=== PATIENT | female | born 1940 | race Caucasian/White ===

== ENCOUNTER 2018-05-07 21:56 | Inpatient (IN) | payer MEDICARE, OTHER ==
[2018-05-07] MEDS ORDERED: NORMAL SALINE 1,000 ML IV ONE (22:34)
[2018-05-07] MEDS ORDERED: HYDROmorphone HCL 1 MG/ML DISP.SYRIN IV ONE (22:35)
[2018-05-07] MEDS ORDERED: ONDANSETRON HCL/PF 2 MG/ML VIAL IV ONE (22:35)
[2018-05-07] MEDS ORDERED: PANTOPRAZOLE SODIUM 40 MG in NORMAL SALINE 100 ML IV ONE (22:35)
[2018-05-07] MEDS ORDERED: ONDANSETRON HCL/PF 2 MG/ML VIAL ONE (22:39)
[2018-05-07] MEDS ORDERED: HYDROmorphone HCL 2 MG/ML VIAL ONE (22:40)
[2018-05-07] MEDS ORDERED: PANTOPRAZOLE SODIUM 40 MG/100 ML PIGGYBACK IV ONE (22:40)
[2018-05-07 22:53] LABS: Hemoglobin 9.7 gm/dL (12.5-16.0); Mean Cell Volume 98.2 fl (78-100); Mean Corpuscular Hgb Conc 34.6 g/dl (32-36); Mean Platelet Volume 9.6 fl (8-12.5); Neutrophil # 5.6 K/mm3 (1.3-6.0); Platelet Count 196 K/mm3 (150-450); Red Blood Count 2.85 M/mm3 (4.2-5.4); Red Cell Distribution Width 11.3 % (11.5-14.0); White Blood Count 7.4 K/mm3 (4.0-10.5)
[2018-05-07 23:17] LABS: Albumin * 3.6 gm/dl (3.4-5.0); BUN/Creatinine Ratio 13.4 (9.0-21.6); Bilirubin, Total 0.8 mg/dL (0.0-1.1); Ca. Corrected For Albumin 8.8 mg/dL (8.4-10.2); Calcium * 8.8 mg/dL (7.9-10.9); Carbon Dioxide 32.8 mmol/L (24-32.6); Potassium 3.8 mmol/L (3.4-4.6); Total Protein 6.8 gm/dL (6.2-8.2); Troponin I 0.022 ng/mL (0.00-0.10)
[2018-05-07] MEDS ORDERED: MAG HYDROX/ALUMINUM HYD/SIMETH 30 ML UDC PO ONE (23:38)
[2018-05-07] MEDS ORDERED: SUCRALFATE 1 G/10 ML UDC PO ONE (23:38)
[2018-05-07] MEDS ORDERED: LIDOCAINE HCL 20 ML UDC PO ONE (23:38)
[2018-05-07 23:49] LABS: Urine Bilirubin Negative (NEGATIVE); Urine Ketone Negative (NEGATIVE); Urine Nitrite Negative (NEGATIVE); Urine Protein 15 mg/dL (NEGATIVE); Urine Specific Gravity <=1.005 SP.GR. (1.005-1.010); Urine Urobilinogen Normal (NORMAL)
[2018-05-07 23:57] LABS: Urine Appearance Slightly Cloudy (CLEAR); Urine Blood 5 /ul (NEGATIVE); Urine Color Yellow
[2018-05-07 23:58] LABS: Urine Bacteria 4+; Urine RBC None Seen /hpf (0-5); Urine WBC 0-5 /hpf (0-5)
[2018-05-08] MEDS ORDERED: ALBUTEROL SULFATE 2.5 MG/0.5 ML VIAL.NEB IH ONE ×2 (00:36→00:40)
[2018-05-08] MEDS ORDERED: HYDROmorphone HCL 1 MG/ML DISP.SYRIN IV ONE (02:28)
[2018-05-08] MEDS ORDERED: HYDROmorphone HCL 1 MG/ML DISP.SYRIN ONE (02:31)
--- NOTE | 2018-05-08 02:38 | ERNOTE ---
Abdominal HPI - Narrative Date of Service: 05/08/18 - General Chief Complaint: Abdominal Pain Time Seen by Provider: 05/07/18 22:29 Source: patient, family Exam Limitations: no limitations - Immun/Allergies/Home Medications Immunizatons: IMMUNIZATION HX Immunizations Up to Date Yes History of Influenza Vaccine No Hx Pneumococcal Vaccination Yes Allergies/Adverse Reactions: Allergies atorvastatin calcium [From Lipitor] Allergy (Verified 03/18/18 15:30) doxycycline Allergy (Verified 03/18/18 15:30) sulfamethoxazole [Sulfamethoxazole] Allergy (Verified 03/18/18 15:30) Home Medications: HOME MEDICATIONS Aspirin 81 mg PO DAILY 03/07/16 [Last Taken Unknown] Budesonide [Pulmicort Respules] 2 ml IH BID 03/07/16 [Last Taken Unknown] Escitalopram Oxalate [Lexapro] 10 mg PO DAILY 03/07/16 [Last Taken Unknown] Isosorbide Mononitrate [Isosorbide Mononitrate ER] 120 mg PO DAILY 03/07/16 [Last Taken Unknown] Levalbuterol HCl [Xopenex] 0.63 mg IH Q4H PRN 03/07/16 [Last Taken Unknown] Polyethylene Glycol 3350 [Miralax] 17 gm PO DAILY 03/07/16 [Last Taken Unknown] Tiotropium [place] [Spiriva] 1 cap IH DAILY 03/07/16 [Last Taken Unknown] lamoTRIgine [Lamotrigine Odt] 100 mg PO DAILY 03/07/16 [Last Taken Unknown] traMADol HCL [Ultram] 50 mg PO BID PRN #20 tab 10/19/17 [Last Taken Unknown] metformin 500 mg tablet 250 mg PO BID tab 03/18/18 [Last Taken Unknown] oxycodone-acetaminophen 5 mg-325 mg tablet 1 tab PO BID PRN tab 03/18/18 [Last Taken Unknown] potassium chloride ER 20 mEq tablet,extended release(part/cryst) 20 meq PO DAILY 03/18/18 [Last Taken Unknown] ipratropium-albuterol 0.5 mg-3 mg(2.5 mg base)/3 mL nebulization soln 3 ml IH Q6H PRN #90 ml 03/26/18 [Last Taken Unknown] gabapentin 600 mg tablet 600 mg PO HS #30 tab 03/30/18 [Last Taken Unknown] atorvastatin 40 mg tablet 40 mg PO HS #30 tab 04/20/18 [Last Taken Unknown] Azithromycin [Zithromax] 500 mg PO DAILY #5 tab 04/28/18 [Last Taken Unknown] predniSONE [Prednisone] 1 tab PO TID #15 tab 04/28/18 [Last Taken Unknown] - History of Present Illness Narrative: patient presents with epigastric pain started earlier in days, known hx of copd andcad, nausea also present Timing: constant Quality: sharpness, stabbing Activities at Onset: none Modifying Factors - (Improves): Present: other - nothing Modifying Factors - (Worsens): Present: eating Associated Symptoms: Present: loss of appetite, shortness of breath Prior Abdominal Problems: Present: similar symptoms Review of Systems - Narrative Narrative: unremarkable - Review of Systems Constitutional: Present: See HPI, weakness, fatigue, malaise EYE: Present: no symptoms reported ENT: Present: no symptoms reported Respiratory: Present: See HPI, shortness of breath, orthopnea, wheezing Gastrointestinal/Abdominal: Present: See HPI, nausea, abdominal pain, other - pain in epigastrium, Genitourinary: Present: no symptoms reported Musculoskeletal: Present: no symptoms reported Skin: Present: no symptoms reported Neurological: Present: no symptoms reported Endocrine: Present: no symptoms reported Hematologic/Lymphatic: Present: no symptoms reported Psych: Present: no symptoms reported All Other Systems: All systems neg except as marked Medical History (Last Reviewed 05/07/18 @ 22:08 by Sherry Garcia RN) SLE (systemic lupus erythematosus related syndrome) (Chronic) Onset Date: ~1987 Osteoporosis (Chronic) Onset Date: ~2004 Hypertension (Chronic) Onset Date: ~1984 Hyperlipidemia (Chronic) Onset Date: ~2001 GERD (gastroesophageal reflux disease) (Chronic) Onset Date: ~1991 Diabetes mellitus (Chronic) Onset Date: ~1980 CVA (cerebral vascular accident) (Acute) Onset Date: Unknown COPD (chronic obstructive pulmonary disease) (Chronic) Onset Date: ~2000 Chronic kidney disease (Chronic) Onset Date: ~09/23/06 CAD (coronary artery disease) (Chronic) Onset Date: ~12/11/15 Anxiety with depression (Chronic) Onset Date: ~01/09/15 Anemia in chronic illness (Chronic) Onset Date: ~2000 Adrenal insufficiency (Chronic) Onset Date: ~1996 Surgical History: Surgical History (Last Updated 05/07/18 @ 22:09 by Sherry Garcia RN) Hx of appendectomy Hx of heart artery stent Family History: Family History (Last Updated 05/07/18 @ 22:09 by Sherry Garcia RN) Other No pertinent family history Social History: Preferred Language Urdu Do you have any pentecostal or No cultural preference? Smoking Status Former smoker Abuse History No History of abuse Psych History Hx of Anxiety,Hx of Depression Alcohol Use none Drug Use none Physical Exam - Physical Exam General Appearance: Present: moderate distress, anxious Head Exam: Present: normal inspection, no evidence of injury Eye Exam: Normal inspection: bilateral, PERRL: bilateral, EOMI: bilateral Ears, Nose, Throat: Present: normal ENT inspection, normal pharynx Neck: Present: normal inspection, nontender Respiratory: Present: respiratory distress, decreased breath sounds Cardiovascular/Chest: Present: regular rate, rhythm, extra beats Peripheral Pulses: N=norm/S=strong/W=weak/B=bound/A=absent: Carotid (R): Normal, Carotid (L): Normal, Radial (R): Normal, Radial (L): Normal, Femoral (R): Normal Gastrointestinal/Abdominal: Present: tenderness, other - tenderness in epigastrium, reproducible with palpation Back Exam: Present: normal inspection, normal range of motion, no CVA tenderness, no vertebral tenderness Extremity Exam: Present: normal inspection, non-tender, normal range of motion, no edema Neurological Exam: Present: alert, oriented, normal mood/affect, no m otor/sensory deficits Skin Exam: Present: normal color, warm/dry Lymphatic Exam: Present: no adenopathy ED Progress - Date and Time Seen: Date and Time: 05/08/18 02:35 patient improved, case discussed with dr ramirez, to admit to observation - Results and Orders Patient's Lab Results:: I have reviewed the patient's lab results. - Vital Signs Patient's Vital Signs:: I have reviewed the patient's vital signs. Vital Signs: Vital Signs 05/07/18 22:05 05/07/18 23:07 05/07/18 23:30 Temperature 36.4 C Pulse Rate 101 H 96 95 Respiratory Rate 18 18 18 Blood Pressure 180/113 H 194/101 H 164/78 H O2 Sat by Pulse Oximetry 95 91 L 91 L 05/08/18 00:00 05/08/18 00:30 05/08/18 00:42 Temperature Pulse Rate 89 92 87 Respiratory Rate 16 20 Blood Pressure 168/68 H 156/83 H O2 Sat by Pulse Oximetry 91 L 88 L 88 L 05/08/18 01:00 05/08/18 01:09 05/08/18 01:30 Temperature Pulse Rate 89 83 Respiratory Rate 16 18 Blood Pressure 164/82 H 170/91 H O2 Sat by Pulse Oximetry 84 L 95 97 - EKG EKG: NSR, premature ventricular contraction EKG read: Interp. by me - X-Ray X-Ray #1 X-Ray: abdomen - copd with patchy infitrates , nsbgp Interpretation: Interp. by me - Progress/Reassessment Chief Complaint: Abdominal Pain Progress:: Improved - Transfer of Care Expected Disposition: Admit Plan - Plan Plan: to admit to observation Departure Clinical Impression: COPD exacerbation, Gastritis and duodenitis, Urinary tract infection - Departure Disposition: Still a patient Condition: Fair
[2018-05-08] MEDS ORDERED: METHYLPREDNISOLONE SOD SUCC/PF 125 MG/2 ML VIAL IV ONE (02:41)
[2018-05-08] MEDS ORDERED: METHYLPREDNISOLONE SOD SUCC/PF 125 MG/2 ML VIAL ONE (02:43)
[2018-05-08] MEDS ORDERED: ALBUTEROL SULFATE 2.5 MG/0.5 ML VIAL.NEB IH PRN (02:44)
[2018-05-08] MEDS: NORMAL SALINE 1,000 ML IV PRN ×2 (11:08→18:26)
[2018-05-08] MEDS: ALBUTEROL SULFATE/IPRATROPIUM 3 ML NEBU IH SCH ×3 (11:40→18:09)
[2018-05-08] MEDS: AZITHROMYCIN 250 MG TABLET PO SCH (12:07)
[2018-05-08] MEDS: predniSONE 20 MG TABLET PO SCH (12:07)
[2018-05-08] MEDS ORDERED: MAGNESIUM CITRATE 300 ML BTL PO ONE (12:30)
[2018-05-08] MEDS: oxyCODONE HCL/ACETAMINOPHEN 1 TAB TABLET PO PRN (17:48)
[2018-05-09] MEDS: ALBUTEROL SULFATE/IPRATROPIUM 3 ML NEBU IH SCH ×4 (00:20→20:12)
[2018-05-09] MEDS: oxyCODONE HCL/ACETAMINOPHEN 1 TAB TABLET PO PRN ×2 (01:40→07:40)
[2018-05-09] MEDS: NORMAL SALINE 1,000 ML IV PRN ×3 (02:01→17:05)
[2018-05-09] MEDS ORDERED: ONDANSETRON HCL/PF 2 MG/ML VIAL IV PRN (09:02)
[2018-05-09] MEDS ORDERED: KETOROLAC TROMETHAMINE 30 MG/ML VIAL IV ONE (09:04)
[2018-05-09] MEDS: AZITHROMYCIN 250 MG TABLET PO SCH (09:21)
[2018-05-09] MEDS: predniSONE 20 MG TABLET PO SCH (09:21)
[2018-05-09] MEDS ORDERED: LEVOFLOXACIN 500 MG TABLET PO ONE (12:36)
[2018-05-09] MEDS: traMADol HCL 50 MG TABLET PO PRN ×2 (12:52→21:47)
[2018-05-09 16:19] LABS: Hematocrit 30.2 % (37.0-47.0); Hemoglobin 10.1 gm/dL (12.5-16.0); Mean Cell Volume 101.3 fl (78-100); Mean Corpuscular Hemoglobin 33.9 pg (27-31); Mean Corpuscular Hgb Conc 33.4 g/dl (32-36); Mean Platelet Volume 9.2 fl (8-12.5); Neutrophil # 9.7 K/mm3 (1.3-6.0); Neutrophil % 94.5 % (42-75.0); Platelet Count 179 K/mm3 (150-450); Red Blood Count 2.98 M/mm3 (4.2-5.4); Red Cell Distribution Width 11.9 % (11.5-14.0); White Blood Count 10.3 K/mm3 (4.0-10.5)
[2018-05-09 16:32] LABS: Albumin * 3.6 gm/dl (3.4-5.0); Anion Gap 9.8 mmol/L (6.8-13.8); BUN/Creatinine Ratio 14.3 (9.0-21.6); Ca. Corrected For Albumin 8.2 mg/dL (8.4-10.2); Calcium * 8.2 mg/dL (7.9-10.9); Carbon Dioxide 28.6 mmol/L (24-32.6); Potassium 4.4 mmol/L (3.4-4.6); Total Protein 6.8 gm/dL (6.2-8.2)
[2018-05-09] MEDS ORDERED: FUROSEMIDE 10 MG/ML VIAL IV ONE (23:01)
--- NOTE | 2018-05-09 23:23 | HP ---
Chief Complaint - Chief Complaint Date of Service: 05/08/18 Time of Service: 11:00 Chief Complaint: Shortness of breath, abdominal pain History of Present Illness: Lenore is a 77 yo female with COPD history who presented to the [facility] ER with oxygen saturation of 70% and was placed on oxygen at 4lpm to keep sats >90%. Shortness of breath and productive cough have been worsening over the past week. She does not use oxygen at home. She also reported abdominal pain. Abdominal xray in the ER showed stool retention. Labwork in the ER was significant for sodium of 121. She reports weakness. Medical History (Last Updated 05/08/18 @ 03:41 by Yana Garcia RN) SLE (systemic lupus erythematosus related syndrome) (Chronic) Onset Date: ~1987 Osteoporosis (Chronic) Onset Date: ~2004 Hypertension (Chronic) Onset Date: ~1984 Hyperlipidemia (Chronic) Onset Date: ~2001 GERD (gastroesophageal reflux disease) (Chronic) Onset Date: ~1991 Diabetes mellitus (Chronic) Onset Date: ~1980 CVA (cerebral vascular accident) (Acute) Onset Date: Unknown COPD (chronic obstructive pulmonary disease) (Chronic) Onset Date: ~2000 Chronic kidney disease (Chronic) Onset Date: ~09/23/06 CAD (coronary artery disease) (Chronic) Onset Date: ~12/11/15 Anxiety with depression (Chronic) Onset Date: ~01/09/15 Anemia in chronic illness (Chronic) Onset Date: ~2000 Adrenal insufficiency (Chronic) Onset Date: ~1996 Asthma Surgical History: Surgical History (Last Updated 05/07/18 @ 22:09 by Sherry Garcia RN) Hx of appendectomy Hx of heart artery stent Family History: Family History (Last Updated 05/10/18 @ 07:20 by Vijaya Hong RN) Father Myocardial infarction Alcohol abuse Mother Aneurysm Alcohol abuse Brother Cancer Other Parents Social History: Patient Lives/Resources With Spouse Utilized Preferred Language Divehi Do you have any yazidism or No cultural preference? Smoking Status Former smoker Have you smoked in the past 12 No months Abuse History No History of abuse Psych History Hx of Anxiety,Hx of Depression Alcohol Use none Drug Use none Review Of Systems (GEN) - Review of Systems Generalized/Overall Review: Present: Weakness, Fatigue. Absent: Chills, Fever EENTM: Present: No Symptoms Reported Respiratory: Present: Cough, Shortness of Breath Cardiac: Present: Edema. Absent: Chest Pain, Palpitations Abdominal: Present: Nausea, Abdominal Pain, Constipation. Absent: Vomiting, Diarrhea Genitourinary: Present: No Symptoms Reported Musculoskeletal: Present: No Symptoms Reported Neurological: Present: No Symptoms Reported Skin: Present: No Symptoms Reported Immunizations: IMMUNIZATION HX Immunizations Up to Date Yes History of Influenza Vaccine No Hx Pneumococcal Vaccination Yes Allergies/Adverse Reactions: Allergies Allergy/AdvReac Type Severity Reaction Status Date / Time doxycycline Allergy Verified 03/18/18 15:30 sulfamethoxazole Allergy Verified 03/18/18 15:30 [Sulfamethoxazole] Home Medications: HOME MEDICATIONS Escitalopram Oxalate [Lexapro] 10 mg PO DAILY 03/07/16 [Last Taken Unknown] Polyethylene Glycol 3350 [Miralax] 17 gm PO DAILY PRN 03/07/16 [Last Taken Unknown] lamoTRIgine [Lamotrigine Odt] 100 mg PO DAILY 03/07/16 [Last Taken Unknown] traMADol HCL [Ultram] 50 mg PO BID PRN #20 tab 10/19/17 [Last Taken Unknown] metformin 500 mg tablet 250 mg PO BID tab 03/18/18 [Last Taken Unknown] oxycodone-acetaminophen 5 mg-325 mg tablet 1 tab PO BID PRN tab 03/18/18 [Last Taken Unknown] potassium chloride ER 20 mEq tablet,extended release(part/cryst) 20 meq PO DAILY 03/18/18 [Last Taken Unknown] ipratropium-albuterol 0.5 mg-3 mg(2.5 mg base)/3 mL nebulization soln 3 ml IH Q6H PRN #90 ml 03/26/18 [Last Taken Unknown] gabapentin 600 mg tablet 600 mg PO HS #30 tab 03/30/18 [Last Taken Unknown] atorvastatin 40 mg tablet 40 mg PO HS #30 tab 04/20/18 [Last Taken Unknown] Cyclobenzaprine HCl 10 mg PO BID PRN 05/08/18 [Last Taken Unknown] Furosemide 20 mg PO DAILY 05/08/18 [Last Taken Unknown] HYDROcodone/ACETAMINOPHEN [Hydrocodon-Acetaminoph 7.5-325] 1 each PO Q8H PRN 05/08/18 [Last Taken Unknown] Lisinopril [Zestril] 10 mg PO DAILY 05/08/18 [Last Taken Unknown] predniSONE [Prednisone] 5 mg PO DAILY 05/08/18 [Last Taken Unknown] Exam - Exam Vital Signs: Vital Signs - Last Taken Temp 36.5 C 05/09/18 22:33 Pulse 111 H 05/09/18 23:09 Resp 32 H 05/09/18 22:44 BP 202/112 H 05/09/18 23:09 Pulse Ox 94 05/09/18 22:44 Constitutional: Present: Alert, Oriented x3 ENT Exam: Present: hearing grossly normal Eye Exam: bilateral eye: normal inspection Respiratory: Present: lungs clear, expiration (prolonged) Cardiovascular/Chest: Present: regular rate, rhythm, no murmur Abdomen: Present: Normal bowel sounds, soft, tender - diffuse Skin Exam: Present: normal color, warm/dry, no cyanosis Neurologic: Present: no motor/sensory deficits, alert, normal mood/affect, oriented x 3 Diagnostic Studies: Abnormal Lab Results 05/09/18 05/09/18 Range/Units 16:15 16:15 RBC 2.98 L (4.2-5.4) M/mm3 Hgb 10.1 L (12.5-16.0) gm/dL Hct 30.2 L (37.0-47.0) % MCV 101.3 H (78-100) fl MCH 33.9 H (27-31) pg Immature Gran # (Auto) 0.04 H (0.000-0.0310) K/mm3 Neutrophils % 94.5 H (42-75.0) % Lymphocytes % 3.3 L (20-51) % Neutrophils # 9.7 H (1.3-6.0) K/mm3 Lymphocytes # 0.34 L (1.5-3.5) k/mm3 Sodium 128 L (132-142) mmol/L Plasma Sodium 129 L (130-142) mmol/L Chloride 94 L (97-106) mmol/L Est GFR (Non-Af Amer) 59 L (60-130) mL/min Random Glucose 174 H (70-110) mg/dL Calcium Adj for Albumin 8.2 L (8.4-10.2) mg/dL Microbiology 05/07/18 00:00 Urine Culture - Final Urine,Voided Escherichia Coli 05/08/18 11:20 Sputum Culture - Preliminary Expectorate Sputum No Pathogens Isolated Laboratory Results WBC 10.3 K/mm3 (4.0-10.5) D 05/09/18 16:15 RBC 2.98 M/mm3 (4.2-5.4) L 05/09/18 16:15 Hgb 10.1 gm/dL (12.5-16.0) L 05/09/18 16:15 Hct 30.2 % (37.0-47.0) L 05/09/18 16:15 MCV 101.3 fl (78-100) H 05/09/18 16:15 MCH 33.9 pg (27-31) H 05/09/18 16:15 MCHC 33.4 g/dl (32-36) 05/09/18 16:15 RDW 11.9 % (11.5-14.0) 05/09/18 16:15 Plt Count 179 K/mm3 (150-450) 05/09/18 16:15 MPV 9.2 fl (8-12.5) 05/09/18 16:15 Immature Gran % (Auto) 0.40 % (0.001-0.429) 05/09/18 16:15 Immature Gran # (Auto) 0.04 K/mm3 (0.000-0.0310) H 05/09/18 16:15 Neutrophils % 94.5 % (42-75.0) H 05/09/18 16:15 Lymphocytes % 3.3 % (20-51) L 05/09/18 16:15 Monocytes % 1.8 % (0.0-9) 05/09/18 16:15 Eosinophils % 0.0 % (0.0-3.0) 05/09/18 16:15 Basophils % 0.0 % (0.0-1.0) 05/09/18 16:15 Nucleated RBC % 0.0 k/mm3 (0-1) 05/09/18 16:15 Neutrophils # 9.7 K/mm3 (1.3-6.0) H 05/09/18 16:15 Lymphocytes # 0.34 k/mm3 (1.5-3.5) L 05/09/18 16:15 Monocytes # 0.2 k/mm3 (0.0-1.0) 05/09/18 16:15 Eosinophils # 0.0 k/mm3 (0.0-0.7) 05/09/18 16:15 Absolute Basophils 0.0 k/mm3 (0.0-0.1) 05/09/18 16:15 pCO2 53.0 mmHg (32.0-45.0) H 05/08/18 02:50 pO2 74.5 mmHg (83.0-108.0) L 05/08/18 02:50 HCO3 29.3 mmol/L (21.0-28.0) H 05/08/18 02:50 Total CO2 30.9 mmol/L (19.0-24.0) H 05/08/18 02:50 Base Excess 3.1 mmol/L (-2.0-3.0) H 05/08/18 02:50 ABG pH 7.36 (7.35-7.45) 05/08/18 02:50 ABG O2 Sat (Measured) 94.2 % (94.0-98.0) 05/08/18 02:50 Sodium 128 mmol/L (132-142) L 05/09/18 16:15 Plasma Sodium 129 mmol/L (130-142) L 05/09/18 16:15 Potassium 4.4 mmol/L (3.4-4.6) 05/09/18 16:15 Chloride 94 mmol/L (97-106) L 05/09/18 16:15 Carbon Dioxide 28.6 mmol/L (24-32.6) 05/09/18 16:15 Anion Gap 9.8 mmol/L (6.8-13.8) 05/09/18 16:15 BUN 14 mg/dL (3-23) 05/09/18 16:15 Creatinine 0.98 mg/dL (0.4-1.4) 05/09/18 16:15 Est GFR (Non-Af Amer) 59 mL/min (60-130) L 05/09/18 16:15 BUN/Creatinine Ratio 14.3 (9.0-21.6) 05/09/18 16:15 Random Glucose 174 mg/dL (70-110) H 05/09/18 16:15 Calcium 8.2 mg/dL (7.9-10.9) 05/09/18 16:15 Calcium Adj for Albumin 8.2 mg/dL (8.4-10.2) L 05/09/18 16:15 Total Bilirubin 1.0 mg/dL (0.0-1.1) 05/09/18 16:15 AST 27 U/L (0-48) 05/09/18 16:15 ALT 38 U/L (19-67) 05/09/18 16:15 Alkaline Phosphatase 56 U/L (50-170) 05/09/18 16:15 Troponin I 0.026 ng/mL (0.00-0.10) 05/08/18 07:07 Total Protein 6.8 gm/dL (6.2-8.2) 05/09/18 16:15 Albumin 3.6 gm/dl (3.4-5.0) 05/09/18 16:15 Amylase 63 U/L (25-115) 05/07/18 22:45 Lipase 209 U/L (73-393) 05/07/18 22:45 Urine Color Yellow 05/07/18 23:36 Urine Appearance Slightly cloudy (CLEAR) 05/07/18 23:36 Urine pH 6.0 pH (5.0-7.0) 05/07/18 23:36 Ur Specific [place] <=1.005 SP.GR. (1.005-1.010) 05/07/18 23:36 Urine Protein 15 mg/dL (NEGATIVE) H 05/07/18 23:36 Urine Glucose (UA) Negative mg/dL (NEGATIVE) 05/07/18 23:36 Urine Ketones Negative mg/dL (NEGATIVE) 05/07/18 23:36 Urine Blood 5 /ul (NEGATIVE) H 05/07/18 23:36 Urine Nitrate Negative (NEGATIVE) 05/07/18 23:36 Urine Bilirubin Negative mg/dl (NEGATIVE) 05/07/18 23:36 Prot Sulfosalicylic Acd Negative mg/dL (0) 05/07/18 23:36 Urine Urobilinogen Normal EU/dl (NORMAL) 05/07/18 23:36 Ur Leukocyte Esterase 75 /ul (NEGATIVE) H 05/07/18 23:36 Urine RBC None seen /hpf (0-5) 05/07/18 23:36 Urine WBC 0-5 /hpf (0-5) 05/07/18 23:36 Ur Epithelial Cells Trace /hpf (0-5) 05/07/18 23:36 Urine Bacteria 4+ (NONE) H 05/07/18 23:36 Urine Culture Comments Culture to follow 05/07/18 23:36 Assessment/Plan - Narrative Narrative: Lenore is a 77 yo female with: 1) Acute Respiratory failure with hypoxia, secondary to COPD exacerbation. Already this morning she has been weaned off oxygen and is on room air with oxygen saturation >90%. She will be treated with Azithromycin 500mg daily x 3 days, ER started her on IV solumedrol will continue steroids eventually changing to oral prednisone. Will give nebulizers. Chest xray reviewed and showed no evidence of pneumonia or fluid. As she has already weaned to room air will admit to observation. 2) Hyponatremia: Sodium of 121, suspect mild dehydration due to not eating well from COPD exacerbation. Will give NS and monitor sodium, if taking >2midnights will change to inpatient. 3) Stool retention: Will give mag citrate. - Assessment/Plan (1) Acute respiratory failure with hypoxia Problem: Acute (2) Hyponatremia Problem: Acute (3) Fecal retention Problem: Acute (4) COPD exacerbation Problem: Acute
--- NOTE | 2018-05-09 23:24 | PN ---
Subjective - Date and Time Seen Date: 05/09/18 Time: 12:00 Subjective Narrative: Continues to report abdominal pain. Reports she would like an enema. Sodium still low. Continue IV fluids. Shortness of breath is improved. Has remained off oxygen since being weaned off. Objective - Vitals Vitals: Last Vital Signs Temp 36.5 C 05/09/18 22:33 Pulse 111 H 05/09/18 23:09 Resp 32 H 05/09/18 22:44 BP 202/112 H 05/09/18 23:09 Pulse Ox 94 05/09/18 22:44 - Abnormal Lab Findings Abnormal Lab Findings: Abnormal Lab Results 05/09/18 05/09/18 Range/Units 16:15 16:15 RBC 2.98 L (4.2-5.4) M/mm3 Hgb 10.1 L (12.5-16.0) gm/dL Hct 30.2 L (37.0-47.0) % MCV 101.3 H (78-100) fl MCH 33.9 H (27-31) pg Immature Gran # (Auto) 0.04 H (0.000-0.0310) K/mm3 Neutrophils % 94.5 H (42-75.0) % Lymphocytes % 3.3 L (20-51) % Neutrophils # 9.7 H (1.3-6.0) K/mm3 Lymphocytes # 0.34 L (1.5-3.5) k/mm3 Sodium 128 L (132-142) mmol/L Plasma Sodium 129 L (130-142) mmol/L Chloride 94 L (97-106) mmol/L Est GFR (Non-Af Amer) 59 L (60-130) mL/min Random Glucose 174 H (70-110) mg/dL Calcium Adj for Albumin 8.2 L (8.4-10.2) mg/dL - Exam Constitutional: Present: Alert, Oriented x3, Cooperative ENT Exam: Present: hearing grossly normal Respiratory: Present: lungs clear Cardiovascular/Chest: Present: regular rate, rhythm, no murmur Abdomen: Present: Normal bowel sounds, soft, tender - diffuse tenderness Skin Exam: Present: normal color, warm/dry, no cyanosis Assessment/Plan Plan Narrative: Patient request enema for stool retention. Will continue NS for hyponatremia. Weaned off oxygen, will continue Azithromycin and steroids for COPD exacerbation. Will make inpatient due to continued low sodium, continued abdominal pain, and continued weakness. - Problems/Diagnosis (1) Acute respiratory failure with hypoxia Problem: Resolved (2) COPD exacerbation Problem: Acute (3) Fecal retention Problem: Acute (4) Hyponatremia Problem: Acute
[2018-05-09] MEDS ORDERED: ALPRAZolam 0.5 MG TABLET PO PRN (23:35)
[2018-05-09] MEDS ORDERED: ALBUTEROL SULFATE/IPRATROPIUM 3 ML NEBU IH PRN (23:53)
[2018-05-10] MEDS ORDERED: POLYETHYLENE GLYCOL 3350 119 GM BTL PO PRN (00:15)
[2018-05-10] MEDS: ALBUTEROL SULFATE/IPRATROPIUM 3 ML NEBU IH SCH ×5 (00:17→18:00)
[2018-05-10] MEDS ORDERED: LISINOPRIL 10 MG TABLET ONE (00:42)
[2018-05-10] MEDS: LISINOPRIL 10 MG TABLET PO SCH ×2 (00:44→09:12)
[2018-05-10] MEDS: ESCITALOPRAM OXALATE 10 MG TAB PO SCH (09:12)
[2018-05-10] MEDS: POTASSIUM CHLORIDE 20 MEQ TABLET.SA PO SCH (09:12)
[2018-05-10] MEDS: FUROSEMIDE 20 MG TABLET PO SCH (09:12)
[2018-05-10] MEDS: predniSONE 20 MG TABLET PO SCH (09:12)
[2018-05-10] MEDS: lamoTRIgine 100 MG TABLET PO SCH (09:12)
[2018-05-10] MEDS: AZITHROMYCIN 250 MG TABLET PO SCH (09:13)
[2018-05-10] MEDS: NYSTATIN 15 APPL BTL TP SCH ×2 (10:40→20:42)
[2018-05-10] MEDS ORDERED: FUROSEMIDE 10 MG/ML VIAL IV ONE (11:36)
[2018-05-10 12:20] LABS: Hematocrit 29.2 % (37.0-47.0); Mean Corpuscular Hemoglobin 34.2 pg (27-31); Mean Corpuscular Hgb Conc 34.2 g/dl (32-36); Mean Platelet Volume 9.3 fl (8-12.5); Neutrophil % 91.6 % (42-75.0); Platelet Count 170 K/mm3 (150-450); Red Blood Count 2.92 M/mm3 (4.2-5.4); Red Cell Distribution Width 11.9 % (11.5-14.0); White Blood Count 9.9 K/mm3 (4.0-10.5)
[2018-05-10 12:32] LABS: Albumin * 3.5 gm/dl (3.4-5.0); Anion Gap 8.5 mmol/L (6.8-13.8); BUN/Creatinine Ratio 13.7 (9.0-21.6); Bilirubin, Total 1.3 mg/dL (0.0-1.1); Ca. Corrected For Albumin 8.4 mg/dL (8.4-10.2); Calcium * 8.3 mg/dL (7.9-10.9); Carbon Dioxide 29.8 mmol/L (24-32.6); Potassium 3.3 mmol/L (3.4-4.6); Total Protein 6.7 gm/dL (6.2-8.2)
[2018-05-10] MEDS: INSULIN LISPRO 100 UNITS/ML VIAL SC SCH (17:39)
[2018-05-10] MEDS: traMADol HCL 50 MG TABLET PO PRN (19:01)
[2018-05-10] MEDS: GABAPENTIN 600 MG TABLET PO SCH (20:43)
[2018-05-10] MEDS: ROSUVASTATIN CALCIUM 20 MG TABLET PO SCH (20:44)
--- NOTE | 2018-05-10 23:06 | PN ---
Subjective - Date and Time Seen Date: 05/10/18 Time: 11:00 Subjective Narrative: Increased shortness of breath and lower extremity edema. She is now having bowel movements and abdomen feels better. No fever or chills. Sodium improved but still low. Objective - Vitals Vitals: Last Vital Signs Temp 36.9 C 05/10/18 18:45 Pulse 100 05/10/18 18:45 Resp 18 05/10/18 18:45 BP 185/97 H 05/10/18 18:45 Pulse Ox 100 05/10/18 18:45 - Abnormal Lab Findings Abnormal Lab Findings: Abnormal Lab Results 05/10/18 05/10/18 Range/Units 12:15 12:15 RBC 2.92 L (4.2-5.4) M/mm3 Hgb 10.0 L (12.5-16.0) gm/dL Hct 29.2 L (37.0-47.0) % MCH 34.2 H (27-31) pg Immature Gran # (Auto) 0.04 H (0.000-0.0310) K/mm3 Neutrophils % 91.6 H (42-75.0) % Lymphocytes % 4.0 L (20-51) % Neutrophils # 9.0 H (1.3-6.0) K/mm3 Lymphocytes # 0.40 L (1.5-3.5) k/mm3 Sodium 126 L (132-142) mmol/L Plasma Sodium 127 L (130-142) mmol/L Potassium 3.3 L D (3.4-4.6) mmol/L Chloride 91 L (97-106) mmol/L Random Glucose 181 H (70-110) mg/dL Total Bilirubin 1.3 H (0.0-1.1) mg/dL - Exam Constitutional: Present: Alert, Oriented x3 Respiratory: Present: crackles Cardiovascular/Chest: Present: regular rate, rhythm, no murmur Abdomen: Present: Normal bowel sounds, soft, nontender Extremity: Present: lower extremity edema - 3+ Skin Exam: Present: normal color, warm/dry, no cyanosis Assessment/Plan Plan Narrative: Lenore has lower extremity edema and pulmonary vascular congestions due to the IV fluid for sodium replacement. Will stop fluids and give IV lasix. No respiratory failure at this time, still off oxygen. Will monitor sodium after lasix. Continue azithromycin and steroids. - Problems/Diagnosis (1) COPD exacerbation Problem: Acute (2) Hyponatremia Problem: Acute (3) Acute respiratory failure with hypoxia Problem: Resolved (4) Fecal retention Problem: Resolved (5) Lower extremity edema Problem: Acute (6) Pulmonary vascular congestion Problem: Acute
[2018-05-10 23:29] LABS: Anion Gap 5.7 mmol/L (6.8-13.8); BUN/Creatinine Ratio 13.8 (9.0-21.6); Calcium * 8.4 mg/dL (7.9-10.9); Carbon Dioxide 33.4 mmol/L (24-32.6); Estimated Creat Clear 30.4; Potassium 3.1 mmol/L (3.4-4.6)
[2018-05-11] MEDS: ALBUTEROL SULFATE/IPRATROPIUM 3 ML NEBU IH SCH ×4 (00:17→18:16)
[2018-05-11] MEDS ORDERED: POTASSIUM CHLORIDE 20 MEQ TABLET.SA PO ONE ×2 (00:40→10:38)
[2018-05-11] MEDS ORDERED: FUROSEMIDE 10 MG/ML VIAL IV ONE (05:00)
[2018-05-11] MEDS: INSULIN LISPRO 100 UNITS/ML VIAL SC SCH ×3 (06:44→16:40)
[2018-05-11] MEDS ORDERED: INSULIN LISPRO 100 UNITS/ML VIAL SC SCH (07:00)
[2018-05-11] MEDS: FUROSEMIDE 20 MG TABLET PO SCH (08:23)
[2018-05-11] MEDS: LISINOPRIL 10 MG TABLET PO SCH (08:23)
[2018-05-11] MEDS: predniSONE 20 MG TABLET PO SCH (08:23)
[2018-05-11] MEDS: AZITHROMYCIN 250 MG TABLET PO SCH (08:23)
[2018-05-11] MEDS: NYSTATIN 15 APPL BTL TP SCH ×2 (08:24→21:42)
[2018-05-11] MEDS: POTASSIUM CHLORIDE 20 MEQ TABLET.SA PO SCH (08:24)
[2018-05-11] MEDS: ESCITALOPRAM OXALATE 10 MG TAB PO SCH (08:24)
[2018-05-11] MEDS: lamoTRIgine 100 MG TABLET PO SCH (08:24)
[2018-05-11 09:33] LABS: Albumin * 3.3 gm/dl (3.4-5.0); Anion Gap 4.9 mmol/L (6.8-13.8); BUN/Creatinine Ratio 10.4 (9.0-21.6); Bilirubin, Total 1.1 mg/dL (0.0-1.1); Ca. Corrected For Albumin 8.7 mg/dL (8.4-10.2); Calcium * 8.5 mg/dL (7.9-10.9); Potassium 2.9 mmol/L (3.4-4.6); Total Protein 6.3 gm/dL (6.2-8.2)
[2018-05-11] MEDS: POLYETHYLENE GLYCOL 3350 119 GM BTL PO PRN (10:30)
[2018-05-11 16:52] LABS: Albumin * 3.4 gm/dl (3.4-5.0); Anion Gap 5.3 mmol/L (6.8-13.8); BUN/Creatinine Ratio 13.3 (9.0-21.6); Bilirubin, Total 1.1 mg/dL (0.0-1.1); Ca. Corrected For Albumin 8.7 mg/dL (8.4-10.2); Calcium * 8.5 mg/dL (7.9-10.9); Potassium 4.3 mmol/L (3.4-4.6); Total Protein 6.5 gm/dL (6.2-8.2)
[2018-05-11] MEDS: ROSUVASTATIN CALCIUM 20 MG TABLET PO SCH (21:42)
[2018-05-11] MEDS: GABAPENTIN 600 MG TABLET PO SCH (21:42)
[2018-05-12] MEDS: ALBUTEROL SULFATE/IPRATROPIUM 3 ML NEBU IH SCH ×4 (00:20→19:10)
[2018-05-12] MEDS: INSULIN LISPRO 100 UNITS/ML VIAL SC SCH ×3 (07:24→17:29)
[2018-05-12] MEDS: lamoTRIgine 100 MG TABLET PO SCH (09:34)
[2018-05-12] MEDS: POTASSIUM CHLORIDE 20 MEQ TABLET.SA PO SCH (09:34)
[2018-05-12] MEDS: ESCITALOPRAM OXALATE 10 MG TAB PO SCH (09:34)
[2018-05-12] MEDS: LISINOPRIL 10 MG TABLET PO SCH (09:34)
[2018-05-12] MEDS: predniSONE 20 MG TABLET PO SCH (09:34)
[2018-05-12] MEDS: FUROSEMIDE 20 MG TABLET PO SCH (09:34)
[2018-05-12] MEDS: AZITHROMYCIN 250 MG TABLET PO SCH (09:34)
[2018-05-12] MEDS: NYSTATIN 15 APPL BTL TP SCH ×2 (09:35→20:20)
[2018-05-12 11:21] LABS: Albumin * 3.4 gm/dl (3.4-5.0); Anion Gap 7.2 mmol/L (6.8-13.8); BUN/Creatinine Ratio 14.2 (9.0-21.6); Ca. Corrected For Albumin 9.2 mg/dL (8.4-10.2); Carbon Dioxide 32.1 mmol/L (24-32.6); Potassium 4.3 mmol/L (3.4-4.6); Total Protein 6.5 gm/dL (6.2-8.2)
[2018-05-12] MEDS ORDERED: SUCRALFATE 1 G/10 ML UDC PO ONE (14:00)
[2018-05-12] MEDS ORDERED: MAG HYDROX/ALUMINUM HYD/SIMETH 30 ML UDC PO ONE (14:00)
[2018-05-12] MEDS ORDERED: LIDOCAINE HCL 20 ML UDC PO ONE (14:00)
[2018-05-12] MEDS: ROSUVASTATIN CALCIUM 20 MG TABLET PO SCH (20:20)
[2018-05-12] MEDS: GABAPENTIN 600 MG TABLET PO SCH (20:20)
--- NOTE | 2018-05-12 23:34 | PN ---
Subjective - Date and Time Seen Date: 05/11/18 Time: 08:00 Subjective Narrative: Breathing is better today, still having lower extremity edema. Sodium still low but stable despite having to give lasix yesterday. No abdominal pain. No fever or chills. Objective - Vitals Vitals: Last Vital Signs Selected Entries 05/11/18 07:50 Temperature 37.2 C Pulse Rate 97 Respiratory Rate 18 Blood Pressure 123/76 O2 Sat by Pulse Oximetry 98 Oxygen Delivery Method Room Air - Abnormal Lab Findings Abnormal Lab Findings: Abnormal Lab Results - Exam Constitutional: Present: Alert, Oriented x3, Cooperative ENT Exam: Present: hearing grossly normal Respiratory: Present: lungs clear Cardiovascular/Chest: Present: regular rate, rhythm, no murmur Abdomen: Present: Normal bowel sounds, soft, nontender, nondistended Extremity: Present: lower extremity edema - 2+ Skin Exam: Present: normal color, warm/dry, no cyanosis Assessment/Plan Plan Narrative: Improved today, still having lower extremity edema. Needing additional lasix, will monitor sodium which has remained stable and at her baseline. Continue steroids and azithromycin for COPD exacerbation. - Problems/Diagnosis (1) COPD exacerbation Problem: Acute (2) Hyponatremia Problem: Acute (3) Lower extremity edema Problem: Acute (4) Pulmonary vascular congestion Problem: Resolved (5) Acute respiratory failure with hypoxia Problem: Resolved (6) Fecal retention Problem: Resolved
--- NOTE | 2018-05-12 23:34 | PN ---
Subjective - Date and Time Seen Date: 05/12/18 Time: 11:40 Subjective Narrative: Lenore reports having a choking episode with her orange juice this morning and it has made her feel sick. Feels weak and does not feel able to go home. Lower extremity edema is improved and breathing is good. Sodium is stable and appears at her baseline. Objective - Vitals Vitals: Last Vital Signs Temp 37.1 C 05/12/18 23:15 Pulse 97 05/12/18 23:15 Resp 20 05/12/18 23:15 BP 160/86 H 05/12/18 23:15 Pulse Ox 93 05/12/18 23:15 - Abnormal Lab Findings Abnormal Lab Findings: Abnormal Lab Results 05/12/18 Range/Units 10:50 Sodium 127 L (132-142) mmol/L Plasma Sodium 128 L (130-142) mmol/L Chloride 92 L (97-106) mmol/L Est GFR (Non-Af Amer) 50 L (60-130) mL/min Random Glucose 167 H (70-110) mg/dL Alkaline Phosphatase 48 L (50-170) U/L - Exam Constitutional: Present: Alert, Oriented x3 ENT Exam: Present: hearing grossly normal Respiratory: Present: lungs clear, no respiratory distress Cardiovascular/Chest: Present: regular rate, rhythm, no murmur Abdomen: Present: Normal bowel sounds, soft, nontender, nondistended, no rebound tenderness Skin Exam: Present: normal color, warm/dry, no cyanosis Appearance: Present: appropriate appearance, appropriate insight Eye contact: Present: cooperative, good eye contact, normal speech Assessment/Plan Plan Narrative: Fluid status is doing better today and no additional lasix needed today. Sodium remains stable and is at her baseline. Due to this illness she is significantly weak and reports unable to go home. Is interested in skilled nursing for rehabilitation. Faxed information to local nursing homes but no acceptance at this time. Will have her continue to work on her strength with walking as able. - Problems/Diagnosis (1) Weakness Problem: Acute (2) COPD exacerbation Problem: Acute (3) Hyponatremia Problem: Resolved (4) Lower extremity edema Problem: Resolved (5) Acute respiratory failure with hypoxia Problem: Resolved (6) Fecal retention Problem: Resolved (7) Pulmonary vascular congestion Problem: Resolved
[2018-05-13] MEDS: ALBUTEROL SULFATE/IPRATROPIUM 3 ML NEBU IH SCH ×3 (01:43→13:04)
[2018-05-13] MEDS: INSULIN LISPRO 100 UNITS/ML VIAL SC SCH ×2 (07:20→11:54)
[2018-05-13] MEDS: lamoTRIgine 100 MG TABLET PO SCH (08:48)
[2018-05-13] MEDS: POTASSIUM CHLORIDE 20 MEQ TABLET.SA PO SCH (08:48)
[2018-05-13] MEDS: AZITHROMYCIN 250 MG TABLET PO SCH (08:48)
[2018-05-13] MEDS: ESCITALOPRAM OXALATE 10 MG TAB PO SCH (08:50)
[2018-05-13] MEDS: predniSONE 20 MG TABLET PO SCH (08:50)
[2018-05-13] MEDS: FUROSEMIDE 20 MG TABLET PO SCH (08:50)
[2018-05-13] MEDS: LISINOPRIL 10 MG TABLET PO SCH (08:50)
[2018-05-13] MEDS: NYSTATIN 15 APPL BTL TP SCH (08:51)
[2018-05-13] MEDS: POLYETHYLENE GLYCOL 3350 119 GM BTL PO PRN (08:51)
[2018-05-13] MEDS ORDERED: LEVOFLOXACIN 500 MG TABLET PO SCH (11:00)
--- NOTE | 2018-05-13 12:03 | DS ---
(1) Hyponatremia Problem: Resolved (2) COPD exacerbation Problem: Acute (3) Weakness Problem: Acute (4) Lower extremity edema Problem: Resolved (5) Acute respiratory failure with hypoxia Problem: Resolved (6) Fecal retention Problem: Resolved (7) Pulmonary vascular congestion Problem: Resolved Description of Stay: Lenore is a 77 yo female that was admitted for Acute Respiratory Failure with hypoxia secondary to COPD exacerbation and hyponatremia. She was given nebulizers, oxygen (initially up to 4lpm of oxygen needed), azithromycin, and IV solu-medrol. She was started on IV NS for hyponatremia. The Acute Respiratory Failure quickly resolved and she was able to be weaned from oxygen within a few hours. Sodium was monitored and improved to her baseline, however with the fluid she developed pulmonary congestion and lower extremity edema and lasix IV was required. Sodium was monitored during this process and remained stable and at her baseline. Pulmonary congestion and lower extremity edema improved. She was also treated for stool retention with magnesium citrate and fleets enema. This resolved with treatment. She was weak from her illness but once conditions improved she began to get stronger. She was able to ambulate on her own and felt well enough for discharge to home on 05/13/18. She does continue to feel weak and agreed to home health with therapies for strengthening. She will also need home health to monitor her respiratory status with COPD and blood sugars due to diabetes. Her urine culture ultimately grew E.Coli and she will be treated for Urinary tract infection on levaquin. She completed her course of azithromycin while in the hospital and this was discontinued. She will continue a prednisone taper. Procedures Performed: none Results and Findings: Lab Pending Results 05/07/18 22:45: WBC 7.4, RBC 2.85 L, Hgb 9.7 L, Hct 28.0 L, MCV 98.2, MCH 34.0 H, MCHC 34.6, RDW 11.3 L, Plt Count 196, MPV 9.6, Immature Gran % (Auto) 0.40, Immature Gran # (Auto) 0.03, Neutrophils % 76.0 H, Lymphocytes % 14.9 L, Monocytes % 8.5, Eosinophils % 0.1, Basophils % 0.1, Nucleated RBC % 0.0, Neutrophils # 5.6, Lymphocytes # 1.10 L, Monocytes # 0.6, Eosinophils # 0.0, Absolute Basophils 0.0 05/07/18 22:45: Sodium 121 L, Plasma Sodium 122 L, Potassium 3.8, Chloride 86 L, Carbon Dioxide 32.8 H, Anion Gap 6.0 L, BUN 15, Creatinine 1.12, Est GFR (Non-Af Amer) 50 L, BUN/Creatinine Ratio 13.4, Random Glucose 193 H, Calcium 8.8, Calcium Adj for Albumin 8.8, Total Bilirubin 0.8, AST 24, ALT 34, Alkaline Phosphatase 54, Troponin I 0.022, Total Protein 6.8, Albumin 3.6, Amylase 63, Lipase 209 05/07/18 23:36: Urine Color Yellow, Urine Appearance Slightly cloudy, Urine pH 6.0, Ur Specific [place] <=1.005, Urine Protein 15 H, Urine Glucose (UA) Negative, Urine Ketones Negative, Urine Blood 5 H, Urine Nitrate Negative, Urine Bilirubin Negative, Prot Sulfosalicylic Acd Negative, Urine Urobilinogen Normal, Ur Leukocyte Esterase 75 H, Urine RBC None seen, Urine WBC 0-5, Ur Epithelial Cells Trace, Urine Bacteria 4+ H, Urine Culture Comments Culture to follow 05/08/18 01:00: Troponin I 0.035 05/08/18 02:50: pCO2 53.0 H, pO2 74.5 L, HCO3 29.3 H, Total CO2 30.9 H, Base Excess 3.1 H, ABG pH 7.36, ABG O2 Sat (Measured) 94.2 05/08/18 07:07: Troponin I 0.026 05/08/18 07:07: Sodium 126 L 05/08/18 13:45: Sodium 127 L 05/09/18 16:15: WBC 10.3 D, RBC 2.98 L, Hgb 10.1 L, Hct 30.2 L, MCV 101.3 H, MCH 33.9 H, MCHC 33.4, RDW 11.9, Plt Count 179, MPV 9.2, Immature Gran % (Auto) 0.40, Immature Gran # (Auto) 0.04 H, Neutrophils % 94.5 H, Lymphocytes % 3.3 L, Monocytes % 1.8, Eosinophils % 0.0, Basophils % 0.0, Nucleated RBC % 0.0, Neutrophils # 9.7 H, Lymphocytes # 0.34 L, Monocytes # 0.2, Eosinophils # 0.0, Absolute Basophils 0.0 05/09/18 16:15: Sodium 128 L, Plasma Sodium 129 L, Potassium 4.4, Chloride 94 L, Carbon Dioxide 28.6, Anion Gap 9.8, BUN 14, Creatinine 0.98, Est GFR (Non-Af Amer) 59 L, BUN/Creatinine Ratio 14.3, Random Glucose 174 H, Calcium 8.2, Calcium Adj for Albumin 8.2 L, Total Bilirubin 1.0, AST 27, ALT 38, Alkaline Phosphatase 56, Total Protein 6.8, Albumin 3.6 05/10/18 12:15: WBC 9.9, RBC 2.92 L, Hgb 10.0 L, Hct 29.2 L, MCV 100.0, MCH 34.2 H, MCHC 34.2, RDW 11.9, Plt Count 170, MPV 9.3, Immature Gran % (Auto) 0.40, Immature Gran # (Auto) 0.04 H, Neutrophils % 91.6 H, Lymphocytes % 4.0 L, Monocytes % 3.9, Eosinophils % 0.0, Basophils % 0.1, Nucleated RBC % 0.0, Neutrophils # 9.0 H, Lymphocytes # 0.40 L, Monocytes # 0.4, Eosinophils # 0.0, Absolute Basophils 0.0 05/10/18 12:15: Sodium 126 L, Plasma Sodium 127 L, Potassium 3.3 L D, Chloride 91 L, Carbon Dioxide 29.8, Anion Gap 8.5, BUN 13, Creatinine 0.95, Est GFR (Non- Af Amer) 61, BUN/Creatinine Ratio 13.7, Random Glucose 181 H, Calcium 8.3, Calcium Adj for Albumin 8.4, Total Bilirubin 1.3 H, AST 30, ALT 39, Alkaline Phosphatase 55, Total Protein 6.7, Albumin 3.5 05/10/18 23:19: Sodium 128 L, Plasma Sodium 129 L, Potassium 3.1 L, Chloride 92 L, Carbon Dioxide 33.4 H, Anion Gap 5.7 L, BUN 15, Creatinine 1.09, Est GFR (Non-Af Amer) 52 L, BUN/Creatinine Ratio 13.8, Random Glucose 134 H, Calcium 8.4 05/11/18 09:08: Sodium 128 L, Plasma Sodium 130, Potassium 2.9 L, Chloride 93 L, Carbon Dioxide 33.0 H, Anion Gap 4.9 L, BUN 14, Creatinine 1.35, Est GFR (Non-Af Amer) 41 L D, BUN/Creatinine Ratio 10.4, Random Glucose 214 H D, Calcium 8.5, Calcium Adj for Albumin 8.7, Total Bilirubin 1.1, AST 26, ALT 36, Alkaline Phosphatase 56, Total Protein 6.3, Albumin 3.3 L 05/11/18 10:25: Yeast/Fungal Id See note 05/11/18 16:30: Sodium 128 L, Plasma Sodium 130, Potassium 4.3 D, Chloride 94 L, Carbon Dioxide 33.0 H, Anion Gap 5.3 L, BUN 16, Creatinine 1.20, Est GFR (Non-Af Amer) 47 L, BUN/Creatinine Ratio 13.3, Random Glucose 215 H, Calcium 8.5, Calcium Adj for Albumin 8.7, Total Bilirubin 1.1, AST 27, ALT 36, Alkaline Phosphatase 58, Total Protein 6.5, Albumin 3.4 05/12/18 10:50: Sodium 127 L, Plasma Sodium 128 L, Potassium 4.3, Chloride 92 L, Carbon Dioxide 32.1, Anion Gap 7.2, BUN 16, Creatinine 1.13, Est GFR (Non-Af Amer) 50 L, BUN/Creatinine Ratio 14.2, Random Glucose 167 H, Calcium 9.0, Calcium Adj for Albumin 9.2, Total Bilirubin 1.0, AST 28, ALT 33, Alkaline [place] sphatase 48 L, Total Protein 6.5, Albumin 3.4 Discharge Location: Home Disposition: Home Health Service Home Health Agency: [facility] Home Health Condition: Good Face to Face Encounter completed per [facility] Guidelines: Yes Discharge Activity: Activity as tolerated Discharge Diet: General/regular food Referrals: Missy Bowden DO [Staff Physician] - (Ok to keep scheduled appointment) Problem Oriented Discharge Instructions to Patient/Family: Hyponatremia, Chronic Obstructive Pulmonary Disease Exacerbation, [id number], Urinary Tract Infection, Adult, [id number] Additional Patient Instructions (free text): [facility] Home Health new at discharge- nursing, physical therapy, and bath aid. The patient is to be discharged to home with home health services for monitoring for signs of decompensation, assistance with a bath, and physical therapy visits for strengthening. Patient was hospitalized for acute respiratory failure with hypoxia and hyponatremia. Due to these conditions, patient will need skilled services as patient is deconditioned. The patient is homebound due to shortness of breath with exertion and requiring a walker to ambulate. A plan of care has been established and is periodically reviewed by a physician. The patient will be under the care of Dr. Bowden. The patient had a [id number] encounter on 05/13/2018. I certify that this patient is confined to her home and needs intermittent prison care, physical therapy, and bath aid. -Please make TCM appointment unless long-term discharge. Thank you! Fabiola @ ext:[phone]. Prescriptions (Any new or edited meds): Levofloxacin [Levaquin] 250 mg PO DAILY@1100 #4 tablet Nystatin [Mycostatin Powder] 1 appl TP BID #1 btl predniSONE [Prednisone] 40 mg PO DAILY #25 tablet Complete Home Medications List: Complete Home Medication List: Escitalopram Oxalate [Lexapro] 10 mg PO DAILY 03/07/16 Polyethylene Glycol 3350 [Miralax] 17 gm PO DAILY PRN 03/07/16 lamoTRIgine [Lamotrigine Odt] 100 mg PO DAILY 03/07/16 traMADol HCL [Ultram] 50 mg PO BID PRN #20 tab 10/19/17 metformin 500 mg tablet 250 mg PO BID tab 03/18/18 oxycodone-acetaminophen 5 mg-325 mg tablet 1 tab PO BID PRN tab 03/18/18 potassium chloride ER 20 mEq tablet,extended release(part/cryst) 20 meq PO DAILY 03/18/18 ipratropium-albuterol 0.5 mg-3 mg(2.5 mg base)/3 mL nebulization soln 3 ml IH Q6H PRN #90 ml 03/26/18 gabapentin 600 mg tablet 600 mg PO HS #30 tab 03/30/18 atorvastatin 40 mg tablet 40 mg PO HS #30 tab 04/20/18 Cyclobenzaprine HCl 10 mg PO BID PRN 05/08/18 Furosemide 20 mg PO DAILY 05/08/18 HYDROcodone/ACETAMINOPHEN [Hydrocodone-Acetamin 7.5-325] 1 each PO Q8H PRN 05/08/18 Lisinopril [Zestril] 10 mg PO DAILY 05/08/18 predniSONE [Prednisone] 5 mg PO DAILY 05/08/18 Levofloxacin [Levaquin] 250 mg PO DAILY@1100 #4 tablet 05/13/18 Nystatin [Mycostatin Powder] 1 appl TP BID #1 btl 05/13/18 predniSONE [Prednisone] 40 mg PO DAILY #25 tablet 05/13/18
[2018-05-13 14:56] VITALS: BP 140/61
[2018-05-14] MEDS ORDERED: LEVOFLOXACIN 250 MG TABLET PO SCH (11:00)
== END 2018-05-13 15:39 | disposition home health service (06) | DRG 640 ==
LOC: MS 21:56 → ER 21:56 → MS 05-08 03:16
PROVIDERS: ADMIT Family Medicine; ATTEND Family Medicine
DX: E87.1 Hypo-osmolality and hyponatremia
CPT/HCPCS: 36415; 36600; 71010; 71045; 74019; 74020; 80048; 80053; 81001; 82150; 82803; 83690; 84295; 84484; 85025; 87070; 87077; 87086; 87106; 87186; 90686; 93005; 94640; 94664; 96361; 96365; 96367; 96375; 96376; 99285; J2405

== ENCOUNTER 2018-06-17 22:16 | Inpatient (IN) | payer MEDICARE, OTHER ==
[2018-06-17] MEDS ORDERED: ALBUTEROL SULFATE/IPRATROPIUM 3 ML NEBU IH ONE ×2 (22:25→22:39)
[2018-06-17] MEDS ORDERED: METHYLPREDNISOLONE SOD SUCC/PF 125 MG/2 ML VIAL IV ONE (22:39)
[2018-06-17] MEDS ORDERED: NORMAL SALINE 1,000 ML IV ONE (22:39)
--- NOTE | 2018-06-17 22:44 | ERNOTE ---
Dyspnea - Date Date of Service: 06/17/18 - General Presenting Symptoms: shortness of breath, difficulty of breathing, wheezing Time Seen by Provider: 06/17/18 22:20 Source: patient Exam Limitations: clinical condition - Immun/Allergies/Home Medications Immunizations: IMMUNIZATION HX Immunizations Up to Date Yes History of Influenza Vaccine Yes Hx Pneumococcal Vaccination Yes Allergies/Adverse Reactions: Allergies doxycycline Allergy (Verified 06/17/18 22:28) sulfamethoxazole [Sulfamethoxazole] Allergy (Verified 06/17/18 22:28) acetaminophen [From Percocet] Adverse Reaction (Intermediate, Verified 06/17/18 22:28) Difficulty breathing oxycodone [From Percocet] Adverse Reaction (Intermediate, Verified 06/17/18 22:28) Difficulty breathing Home Medications: HOME MEDICATIONS Polyethylene Glycol 3350 [Miralax] 17 gm PO DAILY PRN 03/07/16 [Last Taken Unknown] metformin 500 mg tablet 250 mg PO BID tab 03/18/18 [Last Taken Unknown] gabapentin 600 mg tablet 600 mg PO HS #30 tab 03/30/18 [Last Taken Unknown] atorvastatin 40 mg tablet 40 mg PO HS #30 tab 04/20/18 [Last Taken Unknown] Lisinopril [Zestril] 10 mg PO DAILY 05/08/18 [Last Taken Unknown] predniSONE [Prednisone] 5 mg PO DAILY 05/08/18 [Last Taken Unknown] Nystatin [Mycostatin Powder] 1 appl TOPICAL BID #1 btl 05/13/18 [Last Taken Unknown] aspirin 81 mg chewable tablet 81 mg PO DAILY 05/19/18 [Last Taken Unknown] calcium carbonate 600 mg calcium (1,500 mg) tablet 600 mg PO DAILY tab 05/19/18 [Last Taken Unknown] escitalopram 20 mg tablet 20 mg PO DAILY #30 tab 05/19/18 [Last Taken Unknown] hydrocodone 7.5 mg-acetaminophen 325 mg tablet 1 tab PO Q8H PRN #120 tab 05/31/18 [Last Taken Unknown] furosemide 20 mg tablet 20 mg PO DAILY #30 tab 06/08/18 [Last Taken Unknown] potassium chloride ER 20 mEq tablet,extended release(part/cryst) 20 meq PO DAILY #30 tab 06/08/18 [Last Taken Unknown] ipratropium-albuterol 0.5 mg-3 mg(2.5 mg base)/3 mL nebulization soln 3 ml IH Q6H PRN #90 ml 06/14/18 [Last Taken Unknown] - History of Present Illness Narrative: 78 yr old female c/o 2 day hx of increasing sob, difficulty breathing,waw seen by PMD today was doing better took a nap and awoke sob took tx but no relief,denies chest pain .no fever or yellowish phlegm,c/o pain right leg , states patient gets leg cramps pain from right knee down Date (Duration): 06/15/18 Time (Timing): 22:30 Severity: moderate Treatment CLOSING MANAGER: by patient Initiating event: Reports: unknown Frequency of episodes: Reports: frequent episodes Modifying Factors - (Improves): Reports: albuterol, oxygen Modifying Factors (Worsens): Reports: activity Associated Symptoms-Dyspnea: Reports: cough, wheezing, leg/calf pain, ankle/leg swelling, anxiety. Denies: fever/chills, sweating, chest pain/discomfort, palpitations Prior Treatment: Reports: recently seen Review of Systems - Review of Systems Constitutional: Present: weakness EYE: Present: no symptoms reported ENT: Present: no symptoms reported Respiratory: Present: See HPI, shortness of breath, cough, wheezing Cardiology: Absent: chest pain, palpitations, syncope Gastrointestinal/Abdominal: Present: no symptoms reported Genitourinary: Present: no symptoms reported Musculoskeletal: Present: other - right leg pain Skin: Present: no symptoms reported Neurological: Present: no symptoms reported Endocrine: Present: no symptoms reported Hematologic/Lymphatic: Present: no symptoms reported All Other Systems: All systems neg except as marked Medical History (Last Reviewed 06/17/18 @ 22:29 by Deana Matt RN) Asthma (Chronic) Onset Date: Unknown SLE (systemic lupus erythematosus related syndrome) (Chronic) Onset Date: ~1987 Osteoporosis (Chronic) Onset Date: ~2004 Hypertension (Chronic) Onset Date: ~1984 Hyperlipidemia (Chronic) Onset Date: ~2001 GERD (gastroesophageal reflux disease) (Chronic) Onset Date: ~1991 Diabetes mellitus (Chronic) Onset Date: ~1980 CVA (cerebral vascular accident) (Acute) Onset Date: Unknown COPD (chronic obstructive pulmonary disease) (Chronic) Onset Date: ~2000 Chronic kidney disease (Chronic) Onset Date: ~09/23/06 stage 3. GFR 48 07/16 CAD (coronary artery disease) (Chronic) Onset Date: ~12/11/15 NSTEMI 12/2015 Prox, LAD, Ramus intermedius Anxiety with depression (Chronic) Onset Date: ~01/09/15 Anemia in chronic illness (Chronic) Onset Date: ~2000 Adrenal insufficiency (Chronic) Onset Date: ~1996 Surgical History: Surgical History (Last Reviewed 06/17/18 @ 22:29 by Deana Matt RN) History of hysterectomy (Resolved) Hx of appendectomy Hx of heart artery stent Family History: Family History (Last Reviewed 06/17/18 @ 22:29 by Deana aMtt RN) Father Myocardial infarction Alcohol abuse Mother Aneurysm Alcohol abuse Brother Cancer Other Parents Social History: Preferred Language Palestinian Smoking Status Former smoker Abuse History No History of abuse Psych History Hx of Anxiety,Hx of Depression (Last Updated 06/17/18 @ 16:29 by Kathleen Barrow MD) No Social History Section defined Physical Exam - Physical Exam General Appearance: Present: alert, moderate distress Head Exam: Present: normal inspection Eye Exam: Normal inspection: bilateral Ears, Nose, Throat: Present: normal ENT inspection Neck: Present: normal inspection, supple Respiratory: Present: respiratory distress, accessory muscle use, rhonchi, wheezing. Absent: no respiratory distress, normal breath sounds, no accessory muscle use, lungs clear Cardiovascular/Chest: Present: regular rate, rhythm, no murmur, normal peripheral pulses Peripheral Pulses: N=norm/S=strong/W=weak/B=bound/A=absent: Carotid (R): Normal, Carotid (L): Normal Gastrointestinal/Abdominal: Present: normal bowel sounds Back Exam: Present: normal range of motion, no CVA tenderness - kyphosis, no vertebral tenderness Extremity Exam: Present: normal inspection, non-tender, pedal edema, extremity edema. Absent: no edema, decreased range of motion, calf tenderness, bony tenderness, joint redness, joint swelling Neurological Exam: Present: alert, oriented, no motor/sensory deficits Skin Exam: Present: cool/dry Lymphatic Exam: Present: no adenopathy ED Progress - Results and Orders Patient's Lab Results:: I have reviewed the patient's lab results. Results and Orders: [id number] BUN10 CR1.10 NA 124 CL88 GLU 163 D-DIMER 2.09 WBC 5.3 HGB 9.2 HCT 27.0 PH7.48 PO2 76.2 PCO2 24.4 HCO3 23.4 O2SAT 96 - Vital Signs Patient's Vital Signs:: I have reviewed the patient's vital signs. - EKG EKG: NSR, RBBB, unchanged from EKG read: Interp. by me EKG Comments: 05/28/18 - X-Ray X-Ray #1 X-Ray: chest Interpretation: Reviewed by me X-ray Comments: patient had xray earlier this evening ,essentiaaly no acute issues ,no pneumonia - CT/Ultrasound CT/Ultrasound Narrative: cta of chest no PE.bilateral pleural effusions tkickening of interlobular septae could be edema Plan - Plan Plan: total output 500ml,pt breathing better but easily fatigued.patient to be admitted Departure Clinical Impression: COPD (chronic obstructive pulmonary disease), CHF (congestive heart failure) - Departure Disposition: Short Term Hospital Inpatient Condition: Fair Referrals: Kathleen Barrow MD [Primary Care Provider] -
[2018-06-17 22:51] LABS: Hemoglobin 9.2 gm/dL (12.5-16.0); Mean Corpuscular Hemoglobin 34.1 pg (27-31); Mean Corpuscular Hgb Conc 34.1 g/dl (32-36); Mean Platelet Volume 9.4 fl (8-12.5); Neutrophil # 3.3 K/mm3 (1.3-6.0); Neutrophil % 60.9 % (42-75.0); Platelet Count 203 K/mm3 (150-450); Red Cell Distribution Width 12.2 % (11.5-14.0); White Blood Count 5.3 K/mm3 (4.0-10.5)
[2018-06-17] MEDS ORDERED: ALBUTEROL SULFATE 2.5 MG/0.5 ML VIAL.NEB IH ONE ×2 (22:54)
[2018-06-17 23:02] LABS: Prothrombin Time (Patient) 10.6 Seconds (9.0-11.0)
[2018-06-17 23:03] LABS: INR 1.06 INR (0.90-1.10); Partial Thrombolplastin Time 28.2 Seconds (24-32)
[2018-06-17 23:09] LABS: Troponin I 0.042 ng/mL (0.00-0.10)
[2018-06-17 23:11] LABS: Anion Gap 11.7 mmol/L (6.8-13.8); BUN/Creatinine Ratio 9.1 (9.0-21.6); Bilirubin, Total 0.6 mg/dL (0.0-1.1); Calcium * 8.5 mg/dL (7.9-10.9); Carbon Dioxide 28.6 mmol/L (24-32.6); Potassium 4.3 mmol/L (3.4-4.6); Total Protein 6.2 gm/dL (6.2-8.2)
[2018-06-17] MEDS ORDERED: FUROSEMIDE 10 MG/ML VIAL ONE (23:23)
[2018-06-17] MEDS ORDERED: FUROSEMIDE 10 MG/ML VIAL IV ONE (23:26)
[2018-06-18] MEDS ORDERED: NORMAL SALINE 1,000 ML IV PRN (02:20)
--- NOTE | 2018-06-18 07:35 | HP ---
Chief Complaint - Chief Complaint Date of Service: 06/18/18 Time of Service: 07:35 History of Present Illness: 78 yo CF presented to the ER with worsening SOB. She states she started feeling bad roughly 1 week ago. She admits to not being compliant with her medications. 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 She also has anxiety, htn, hld, asthma, and DM. She was recently seen in clinic the day before for this issue and was thought to have a COPD exacerbation. She was started on prednisone only, no abx as she was not producing excess sputum and had no fever/chills. It was noted in the that she had increased swelling in her legs (3+ pitting up to both knees) and she had admitted to not taking her lasix. In the ER she was found to have a BNP of >7700, an elevated D-dimer, and a low sodium of 125. Her glucose was elevated. Her blood gas was as good as it has been on records: pH of 7.48 and a low pO2 of 76, her CO2 was WNL. She had a negative CT chest angiogram in the ER, negative for PE. She was given a 1 time dose of lasix 40 mg as well as 125 mg solu-medrol. Medical History (Last Reviewed 06/18/18 @ 07:25 by Emily Castorena RN) Asthma (Chronic) Onset Date: Unknown SLE (systemic lupus erythematosus related syndrome) (Chronic) Onset Date: ~1987 Osteoporosis (Chronic) Onset Date: ~2004 Hypertension (Chronic) Onset Date: ~1984 Hyperlipidemia (Chronic) Onset Date: ~2001 GERD (gastroesophageal reflux disease) (Chronic) Onset Date: ~1991 Diabetes mellitus (Chronic) Onset Date: ~1980 CVA (cerebral vascular accident) (Acute) Onset Date: Unknown COPD (chronic obstructive pulmonary disease) (Chronic) Onset Date: ~2000 Chronic kidney disease (Chronic) Onset Date: ~09/23/06 stage 3. GFR 48 07/16 CAD (coronary artery disease) (Chronic) Onset Date: ~12/11/15 NSTEMI 12/2015 Prox, LAD, Ramus intermedius Anxiety with depression (Chronic) Onset Date: ~01/09/15 Anemia in chronic illness (Chronic) Onset Date: ~2000 Adrenal insufficiency (Chronic) Onset Date: ~1996 Surgical History: Surgical History (Last Reviewed 06/18/18 @ 07:25 by Emily Castorena RN) History of hysterectomy (Resolved) Hx of appendectomy Hx of heart artery stent Family History: Family History (Last Updated 06/18/18 @ 07:24 by Emily Castorena RN) Father Alcohol abuse Myocardial infarction Mother Alcohol abuse Aneurysm Brother Throat cancer Other Parents Social History: Patient Lives/Resources With Spouse Utilized Preferred Language [place]i Do you have any hinduism or No cultural preference? Smoking Status Former smoker Have you smoked in the past 12 No months Abuse History No History of abuse Psych History Hx of Anxiety,Hx of Depression Alcohol Use none Drug Use none (Last Updated 06/17/18 @ 16:29 by Kathleen Barrow MD) No Social History Section defined Review Of Systems (GEN) - Review of Systems Generalized/Overall Review: Present: Fatigue, Weight gain EENTM: Present: No Symptoms Reported Respiratory: Present: Cough, Shortness of Breath. Absent: Stridor, Wheezing Cardiac: Present: Edema. Absent: Chest Pain Abdominal: Present: No Symptoms Reported Genitourinary: Present: No Symptoms Reported Musculoskeletal: Present: Back Pain Neurological: Present: No Symptoms Reported Skin: Present: No Symptoms Reported Endocrine: Present: No Symptoms Reported Immunizations: IMMUNIZATION HX Immunizations Up to Date Yes History of Influenza Vaccine Yes Hx Pneumococcal Vaccination Yes Allergies/Adverse Reactions: Allergies Allergy/AdvReac Type Severity Reaction Status Date / Time doxycycline Allergy Verified 06/17/18 22:28 sulfamethoxazole Allergy Verified 06/17/18 22:28 [Sulfamethoxazole] tetracycline Allergy Verified 06/18/18 08:41 acetaminophen [From Percocet] AdvReac Intermediate Difficulty Verified 06/17/18 22:28 breathing oxycodone [From Percocet] AdvReac Intermediate Difficulty Verified 06/17/18 22:28 breathing Home Medications: HOME MEDICATIONS Polyethylene Glycol 3350 [Miralax] 17 gm PO DAILY PRN 03/07/16 [Last Taken Unknown] metformin 500 mg tablet 250 mg PO BIDAC tab 03/18/18 [Last Taken Unknown] gabapentin 600 mg tablet 600 mg PO HS #30 tab 03/30/18 [Last Taken Unknown] atorvastatin 40 mg tablet 40 mg PO HS #30 tab 04/20/18 [Last Taken Unknown] Lisinopril [Zestril] 10 mg PO DAILY 05/08/18 [Last Taken Unknown] Nystatin [Mycostatin Powder] 1 appl TOPICAL BID #1 btl 05/13/18 [Last Taken Unknown] aspirin 81 mg chewable tablet 81 mg PO DAILY 05/19/18 [Last Taken Unknown] calcium carbonate 600 mg calcium (1,500 mg) tablet 600 mg PO DAILY tab 05/19/18 [Last Taken Unknown] escitalopram 20 mg tablet 20 mg PO DAILY #30 tab 05/19/18 [Last Taken Unknown] hydrocodone 7.5 mg-acetaminophen 325 mg tablet 1 tab PO Q8H PRN #120 tab 05/31/18 [Last Taken Unknown] furosemide 20 mg tablet 20 mg PO DAILY #30 tab 06/08/18 [Last Taken Unknown] potassium chloride ER 20 mEq tablet,extended release(part/cryst) 20 meq PO DAILY #30 tab 06/08/18 [Last Taken Unknown] Ipratropium/Albuterol Sulfate [Iprat-Albut 0.5-3(2.5) mg/3 ml] 3 ml IH PRN PRN 06/18/18 [Last Taken Unknown] Ipratropium/Albuterol Sulfate [Iprat-Albut 0.5-3(2.5) mg/3 ml] 3 ml IH QID 06/18/18 [Last Taken Unknown] Lamotrigine [Lamictal] 100 mg PO DAILY 06/18/18 [Last Taken Unknown] oxyCODONE HCL/ACETAMINOPHEN [Percocet 5-325 mg Tablet] 1 tab PO Q8H PRN 06/18/18 [Last Taken Unknown] Exam - Exam Vital Signs: Vital Signs - Last Taken Temp 36.8 C 06/18/18 07:18 Pulse 91 06/18/18 07:18 Resp 20 06/18/18 07:18 BP 172/89 H 06/18/18 07:18 Pulse Ox 98 06/18/18 07:18 Constitutional: Present: Alert, Oriented x3, Mild distress ENT Exam: Present: hearing grossly normal. Absent: nasal congestion, nasal drainage, pharyngeal erythema Eye Exam: bilateral eye: normal inspection, EOMI Neck: Present: non-tender, full range of motion Back Exam: Present: decreased range of motion - pain with extention/flexion of l spine. Absent: no CVA tenderness Respiratory: Present: decreased breath sounds - minimal air movement on ascultation. 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, no motor/sensory deficits Appearance: Present: disheveled, impaired insight Eye contact: Present: cooperative, good eye contact Thoughts: Present: normal thought pattern, normal mood /affect Diagnostic Studies: Abnormal Lab Results 06/17/18 06/17/18 06/17/18 Range/Units 22:36 22:45 22:45 RBC 2.70 L (4.2-5.4) M/mm3 Hgb 9.2 L (12.5-16.0) gm/dL Hct 27.0 L (37.0-47.0) % MCH 34.1 H (27-31) pg Monocytes % 13.1 H (0.0-9) % Lymphocytes # 1.30 L (1.5-3.5) k/mm3 D-Dimer (0.19-0.49) ug/mL pO2 76.2 L (83.0-108.0) mmHg Total CO2 24.4 H (19.0-24.0) mmol/L ABG pH 7.48 H (7.35-7.45) Sodium 124 L (132-142) mmol/L Plasma Sodium 125 L (130-142) mmol/L Chloride 88 L (97-106) mmol/L Est GFR (Non-Af Amer) 51 L (60-130) mL/min Random Glucose 163 H D (70-110) mg/dL B-Natriuretic Peptide 7709 H (5-550) pg/mL Albumin 3.0 L (3.4-5.0) gm/dl 06/17/18 Range/Units 22:45 RBC (4.2-5.4) M/mm3 Hgb (12.5-16.0) gm/dL Hct (37.0-47.0) % MCH (27-31) pg Monocytes % (0.0-9) % Lymphocytes # (1.5-3.5) k/mm3 D-Dimer 2.09 H (0.19-0.49) ug/mL pO2 (83.0-108.0) mmHg Total CO2 (19.0-24.0) mmol/L ABG pH (7.35-7.45) Sodium (132-142) mmol/L Plasma Sodium (130-142) mmol/L Chloride (97-106) mmol/L Est GFR (Non-Af Amer) (60-130) mL/min Random Glucose (70-110) mg/dL B-Natriuretic Peptide (5-550) pg/mL Albumin (3.4-5.0) gm/dl Laboratory Results WBC 5.3 K/mm3 (4.0-10.5) 06/17/18 22:45 RBC 2.70 M/mm3 (4.2-5.4) L 06/17/18 22:45 Hgb 9.2 gm/dL (12.5-16.0) L 06/17/18 22:45 Hct 27.0 % (37.0-47.0) L 06/17/18 22:45 MCV 100.0 fl (78-100) 06/17/18 22:45 MCH 34.1 pg (27-31) H 06/17/18 22:45 MCHC 34.1 g/dl (32-36) 06/17/18 22:45 RDW 12.2 % (11.5-14.0) 06/17/18 22:45 Plt Count 203 K/mm3 (150-450) 06/17/18 22:45 MPV 9.4 fl (8-12.5) 06/17/18 22:45 Immature Gran % (Auto) 0.20 % (0.001-0.429) 06/17/18 22:45 Immature Gran # (Auto) 0.01 K/mm3 (0.000-0.0310) 06/17/18 22:45 Neutrophils % 60.9 % (42-75.0) 06/17/18 22:45 Lymphocytes % 24.3 % (20-51) 06/17/18 22:45 Monocytes % 13.1 % (0.0-9) H 06/17/18 22:45 Eosinophils % 0.9 % (0.0-3.0) 06/17/18 22:45 Basophils % 0.6 % (0.0-1.0) 06/17/18 22:45 Nucleated RBC % 0.0 k/mm3 (0-1) 06/17/18 22:45 Neutrophils # 3.3 K/mm3 (1.3-6.0) 06/17/18 22:45 Lymphocytes # 1.30 k/mm3 (1.5-3.5) L 06/17/18 22:45 Monocytes # 0.7 k/mm3 (0.0-1.0) 06/17/18 22:45 Eosinophils # 0.1 k/mm3 (0.0-0.7) 06/17/18 22:45 Absolute Basophils 0.0 k/mm3 (0.0-0.1) 06/17/18 22:45 PT 10.6 Seconds (9.0-11.0) 06/17/18 22:45 INR (Anticoag Therapy) 1.06 INR (0.90-1.10) 06/17/18 22:45 PTT (Steffany) 28.2 Seconds (24-32) 06/17/18 22:45 D-Dimer 2.09 ug/mL (0.19-0.49) H 06/17/18 22:45 pCO2 32.0 mmHg (32.0-45.0) 06/17/18 22:36 pO2 76.2 mmHg (83.0-108.0) L 06/17/18 22:36 HCO3 23.4 mmol/L (21.0-28.0) 06/17/18 22:36 Total CO2 24.4 mmol/L (19.0-24.0) H 06/17/18 22:36 Base Excess 0.4 mmol/L (-2.0-3.0) 06/17/18 22:36 ABG pH 7.48 (7.35-7.45) H 06/17/18 22:36 ABG O2 Sat (Measured) 96.2 % (94.0-98.0) 06/17/18 22:36 Sodium 124 mmol/L (132-142) L 06/17/18 22:45 Plasma Sodium 125 mmol/L (130-142) L 06/17/18 22:45 Potassium 4.3 mmol/L (3.4-4.6) 06/17/18 22:45 Chloride 88 mmol/L (97-106) L 06/17/18 22:45 Carbon Dioxide 28.6 mmol/L (24-32.6) 06/17/18 22:45 Anion Gap 11.7 mmol/L (6.8-13.8) 06/17/18 22:45 BUN 10 mg/dL (3-23) 06/17/18 22:45 Creatinine 1.10 mg/dL (0.4-1.4) 06/17/18 22:45 Est GFR (Non-Af Amer) 51 mL/min (60-130) L 06/17/18 22:45 BUN/Creatinine Ratio 9.1 (9.0-21.6) 06/17/18 22:45 Random Glucose 163 mg/dL (70-110) H D 06/17/18 22:45 Lactic Acid, Venous 0.6 mmol/L (0.4-2.0) 06/17/18 22:45 Calcium 8.5 mg/dL (7.9-10.9) 06/17/18 22:45 Calcium Adj for Albumin 9.0 mg/dL (8.4-10.2) 06/17/18 22:45 Total Bilirubin 0.6 mg/dL (0.0-1.1) 06/17/18 22:45 AST 29 U/L (0-48) 06/17/18 22:45 ALT 29 U/L (19-67) 06/17/18 22:45 Alkaline Phosphatase 59 U/L (50-170) 06/17/18 22:45 Troponin I 0.042 ng/mL (0.00-0.10) 06/17/18 22:45 B-Natriuretic Peptide 7709 pg/mL (5-550) H 06/17/18 22:45 Total Protein 6.2 gm/dL (6.2-8.2) 06/17/18 22:45 Albumin 3.0 gm/dl (3.4-5.0) L 06/17/18 22:45 Assessment/Plan - Narrative Narrative: This is looking more like a CHF exacerbation than a COPD exacerbation with the worsening edema and elevated BNP + she is not having worsening cough or excessive sputum production. It has been > 2years since her last echo-will repeat this. Increased her lasix to 40 mg q D while she is here. Re-emphasized the importance of being compliant with her tx. Restarted her lisinopril and crestor. She is not currently on a beta lianna, will wait to start this as she is in an acute exacerbation. Strict I/Os ordered. Will fluid restrict to 1500 mls /Daily for the time being. Stopped her IV fluids. This should also help with her worsening hyponatremia. Her baseline is 129-130, will monitor, recheck BMP in the AM. Recommend her using incentive spirometry while here. PT ordered for deconditioning. Will titrate o2 therapy to be between 90-94%. Lovenox for DVT ppx. Will order protonix for GERD Restarted her chonic meds for her other co-morbidities. Will add PRN HTN med to be used for BP systolic >160s. May need to add a sliding scale for better sugar control, especially where she got so much steroid for her COPD. Restart her home tx regimen. No changes to any medications at this time as she has not bene compliant with them and so unsure of how she will react to them once taking them regularly. - Assessment/Plan (1) CHF (congestive heart failure) Problem: Chronic Qualifiers: Heart failure chronicity: acute on chronic (2) Hypoxia Problem: Acute (3) Hyponatremia Problem: Acute (4) Acute respiratory failure with hypoxia Problem: Chronic (5) Lower extremity edema Problem: Acute (6) Diabetes mellitus Problem: Chronic (7) COPD (chronic obstructive pulmonary disease) Problem: Chronic (8) CAD (coronary artery disease) Problem: Chronic (9) Anemia in chronic illness Problem: Chronic
[2018-06-18] MEDS ORDERED: metFORMIN HCL 500 MG TABLET PO SCH (09:00)
[2018-06-18] MEDS ORDERED: FUROSEMIDE 10 MG/ML VIAL IV SCH (09:00)
[2018-06-18] MEDS: ALBUTEROL SULFATE/IPRATROPIUM 3 ML NEBU IH PRN (09:50)
[2018-06-18] MEDS: FUROSEMIDE 10 MG/ML VIAL IV SCH (09:59)
[2018-06-18] MEDS: ASPIRIN 81 MG TAB.CHEW PO SCH (10:01)
[2018-06-18] MEDS: POTASSIUM CHLORIDE 20 MEQ TABLET.SA PO SCH (10:01)
[2018-06-18] MEDS: ESCITALOPRAM OXALATE 10 MG TAB PO SCH (10:01)
[2018-06-18] MEDS: LISINOPRIL 10 MG TABLET PO SCH (10:01)
[2018-06-18] MEDS: ENOXAPARIN SODIUM 40 MG/0.4 ML SYRG SC SCH (10:02)
[2018-06-18] MEDS: POLYETHYLENE GLYCOL 3350 119 GM BTL PO PRN (10:03)
[2018-06-18] MEDS ORDERED: hydrALAZINE HCL 20 MG/ML VIAL IV PRN (12:53)
[2018-06-18] MEDS ORDERED: GABAPENTIN 600 MG TABLET PO SCH (21:00)
[2018-06-18] MEDS ORDERED: ROSUVASTATIN CALCIUM 20 MG TABLET PO SCH (21:00)
[2018-06-19] MEDS: ALBUTEROL SULFATE/IPRATROPIUM 3 ML NEBU IH PRN (05:15)
[2018-06-19 07:31] LABS: Anion Gap 8.2 mmol/L (6.8-13.8); BUN/Creatinine Ratio 9.2 (9.0-21.6); Calcium * 8.7 mg/dL (7.9-10.9); Carbon Dioxide 36.4 mmol/L (24-32.6); Estimated Creat Clear 28.7; Potassium 3.6 mmol/L (3.4-4.6)
[2018-06-19] MEDS: ASPIRIN 81 MG TAB.CHEW PO SCH (08:10)
[2018-06-19] MEDS: ESCITALOPRAM OXALATE 10 MG TAB PO SCH (08:10)
[2018-06-19] MEDS: FUROSEMIDE 10 MG/ML VIAL IV SCH (08:10)
[2018-06-19] MEDS: POTASSIUM CHLORIDE 20 MEQ TABLET.SA PO SCH (08:10)
[2018-06-19] MEDS: POLYETHYLENE GLYCOL 3350 119 GM BTL PO PRN (08:11)
[2018-06-19] MEDS: LISINOPRIL 10 MG TABLET PO SCH (08:11)
[2018-06-19] MEDS: ENOXAPARIN SODIUM 40 MG/0.4 ML SYRG SC SCH (08:11)
[2018-06-19] MEDS ORDERED: FUROSEMIDE 20 MG TABLET PO SCH (09:00)
--- NOTE | 2018-06-19 11:51 | DS ---
(1) CHF (congestive heart failure) Problem: Chronic Qualifiers: Heart failure chronicity: acute on chronic (2) Hypoxia Problem: Acute (3) Hyponatremia Problem: Acute (4) Acute respiratory failure with hypoxia Problem: Chronic (5) Lower extremity edema Problem: Acute (6) Diabetes mellitus Problem: Chronic (7) COPD (chronic obstructive pulmonary disease) Problem: Chronic (8) CAD (coronary artery disease) Problem: Chronic (9) Anemia in chronic illness Problem: Chronic Description of Stay: Ms Copeland was brought in for acute hypoxia and hyponatremia. She has a hx of both COPD and CHF as well as chronic hyponatremia. She was found to have a BNP of >7700 which is the highest it has been that we have on record. Her sodium was 125. She admits to not being compliant with her home medications as well as not restricting her fluid intake. Her swelling initially was 3+ pitting to just below both knees has also improved significantly. She is breathing easier and maintaining sats in an acceptable range without requiring o2 therapy. Her sodium since being fluid restricted as well as the increased diuretic has returned to an acceptable range. She is down >12 lbs. Her chronic pain medication was held as she was in respiratory distress and she did not require it during her stay. She will need to get a repeat TTE but this can be done outpatient. No changes to be made to her home medications as I think she will do significantly better if she is just compliant with her current treatment plans. Her hemoglobin is stable, she is at her basaline. Her blood sugars have been stable while here. Her BP ran a little high, again advised her to restart her medications to see how she responds to being on them regularly. Procedures Performed: none Results and Findings: Lab Pending Results 06/17/18 22:36: pCO2 32.0, pO2 76.2 L, HCO3 23.4, Total CO2 24.4 H, Base Excess 0.4, ABG pH 7.48 H, ABG O2 Sat (Measured) 96.2 06/17/18 22:45: WBC 5.3, RBC 2.70 L, Hgb 9.2 L, Hct 27.0 L, MCV 100.0, MCH 34.1 H, MCHC 34.1, RDW 12.2, Plt Count 203, MPV 9.4, Immature Gran % (Auto) 0.20, Immature Gran # (Auto) 0.01, Neutrophils % 60.9, Lymphocytes % 24.3, Monocytes % 13.1 H, Eosinophils % 0.9, Basophils % 0.6, Nucleated RBC % 0.0, Neutrophils # 3.3, Lymphocytes # 1.30 L, Monocytes # 0.7, Eosinophils # 0.1, Absolute Basophils 0.0 06/17/18 22:45: PT 10.6, INR (Anticoag Therapy) 1.06, PTT (Steffany) 28.2 06/17/18 22:45: Sodium 124 L, Plasma Sodium 125 L, Potassium 4.3, Chloride 88 L, Carbon Dioxide 28.6, Anion Gap 11.7, BUN 10, Creatinine 1.10, Est GFR (Non-Af Amer) 51 L, BUN/Creatinine Ratio 9.1, Random Glucose 163 H D, Calcium 8.5, Calcium Adj for Albumin 9.0, Total Bilirubin 0.6, AST 29, ALT 29, Alkaline Phosphatase 59, Troponin I 0.042, B-Natriuretic Peptide 7709 H, Total Protein 6.2, Albumin 3.0 L 06/17/18 22:45: D-Dimer 2.09 H 06/17/18 22:45: Lactic Acid, Venous 0.6 06/19/18 07:15: Sodium 133, Plasma Sodium 133, Potassium 3.6, Chloride 92 L, Carbon Dioxide 36.4 H, Anion Gap 8.2, BUN 11, Creatinine 1.19, Est GFR (Non-Af Amer) 47 L, BUN/Creatinine Ratio 9.2, Random Glucose 125 H, Calcium 8.7 Discharge Location: Home Disposition: Home Health Service Condition: Fair Discharge Activity: Activity as tolerated Discharge Diet: Low fat/chol, Other - restrict fluid to 2000 mls per day Referrals: Kathleen Barrow MD [Primary Care Provider] - One Week Additional Patient Instructions (free text): -Please make TCM appointment unless fdc discharge. Thank you! Fabiola @ [phone]. Resume services with [facility] at discharge. Nursing and bath aide. Please call report and fax orders. Strict weight monitoring, notify your PCP if weight starts increasing, swelling worsens, SOB returns. Complete Home Medications List: Complete Home Medication List: Polyethylene Glycol 3350 [Miralax] 17 gm PO DAILY PRN 03/07/16 metformin 500 mg tablet 250 mg PO BIDAC tab 03/18/18 gabapentin 600 mg tablet 600 mg PO HS #30 tab 03/30/18 atorvastatin 40 mg tablet 40 mg PO HS #30 tab 04/20/18 Lisinopril [Zestril] 10 mg PO DAILY 05/08/18 Nystatin [Mycostatin Powder] 1 appl TOPICAL BID #1 btl 05/13/18 aspirin 81 mg chewable tablet 81 mg PO DAILY 05/19/18 calcium carbonate 600 mg calcium (1,500 mg) tablet 600 mg PO DAILY tab 05/19/18 escitalopram 20 mg tablet 20 mg PO DAILY #30 tab 05/19/18 hydrocodone 7.5 mg-acetaminophen 325 mg tablet 1 tab PO Q8H PRN #120 tab 05/31/18 furosemide 20 mg tablet 20 mg PO DAILY #30 tab 06/08/18 potassium chloride ER 20 mEq tablet,extended release(part/cryst) 20 meq PO DAILY #30 tab 06/08/18 Ipratropium/Albuterol Sulfate [Iprat-Albut 0.5-3(2.5) mg/3 ml] 3 ml IH PRN PRN 06/18/18 Ipratropium/Albuterol Sulfate [Iprat-Albut 0.5-3(2.5) mg/3 ml] 3 ml IH QID 06/18/18 Lamotrigine [Lamictal] 100 mg PO DAILY 06/18/18 oxyCODONE HCL/ACETAMINOPHEN [Percocet 5-325 mg Tablet] 1 tab PO Q8H PRN 06/18/18
[2018-06-19 13:37] VITALS: BP 141/72
--- NOTE | 2018-06-22 07:54 | ECHO ---
This report is available in the EMR
== END 2018-06-19 13:53 | disposition home health service (06) | DRG 291 ==
LOC: ER 22:16 → MS 06-18 00:47
PROVIDERS: ADMIT Family Medicine; ATTEND Family Medicine
DX: R09.02 Hypoxemia
CPT/HCPCS: 36415; 36600; 71020; 71046; 71275; 80048; 80053; 82803; 83519; 83605; 83880; 84484; 85025; 85379; 85610; 85730; 93005; 93306; 94640; 94664; 96361; 96374; 96375; 97110; 97116; 97161; 99214; 99285

== ENCOUNTER 2018-08-15 21:36 | Inpatient (IN) | payer MEDICARE, OTHER ==
[2018-08-15] MEDS ORDERED: ALBUTEROL SULFATE 2.5 MG/0.5 ML VIAL.NEB IH ONE (21:45)
[2018-08-15] MEDS ORDERED: FUROSEMIDE 10 MG/ML VIAL IV ONE (21:47)
--- NOTE | 2018-08-15 21:51 | ERNOTE ---
Dyspnea - Date Date of Service: 08/15/18 - General Presenting Symptoms: shortness of breath, difficulty of breathing, wheezing Time Seen by Provider: 08/15/18 21:43 Source: patient, EMS Exam Limitations: no limitations - Immun/Allergies/Home Medications Immunizations: IMMUNIZATION HX Immunizations Up to Date Yes History of Influenza Vaccine Yes Hx Pneumococcal Vaccination Yes Allergies/Adverse Reactions: Allergies doxycycline Allergy (Verified 08/15/18 21:37) sulfamethoxazole [Sulfamethoxazole] Allergy (Verified 08/15/18 21:37) tetracycline Allergy (Verified 08/15/18 21:37) acetaminophen [From Percocet] Adverse Reaction (Intermediate, Verified 08/15/18 21:37) Difficulty breathing oxycodone [From Percocet] Adverse Reaction (Intermediate, Verified 08/15/18 21:37) Difficulty breathing Home Medications: HOME MEDICATIONS Polyethylene Glycol 3350 [Miralax] 17 gm PO DAILY PRN 03/07/16 [Last Taken Unknown] Nystatin [Mycostatin Powder] 1 appl TOPICAL BID #1 btl 05/13/18 [Last Taken Unknown] aspirin 81 mg chewable tablet 81 mg PO DAILY 05/19/18 [Last Taken Unknown] calcium carbonate 600 mg calcium (1,500 mg) tablet 600 mg PO DAILY tab 05/19/18 [Last Taken Unknown] escitalopram 20 mg tablet 20 mg PO DAILY #30 tab 05/19/18 [Last Taken Unknown] Lamotrigine [Lamictal] 100 mg PO DAILY 06/18/18 [Last Taken Unknown] oxyCODONE HCL/ACETAMINOPHEN [Percocet 5-325 mg Tablet] 1 tab PO Q8H PRN 06/18/18 [Last Taken Unknown] metformin 500 mg tablet 250 mg PO BIDAC #60 tab 07/02/18 [Last Taken Unknown] predniSONE [Prednisone] 2 tab PO BID #10 tab 07/04/18 [Last Taken Unknown] Oxygen concentrator with supplies and portable tanks 0 .ROUTE .MEDSUPPLY #99 ea 07/05/18 [Last Taken Unknown] furosemide 20 mg tablet 20 mg PO DAILY #30 tab 07/06/18 [Last Taken Unknown] gabapentin 600 mg tablet 600 mg PO HS #30 tab 07/06/18 [Last Taken Unknown] potassium chloride ER 20 mEq tablet,extended release(part/cryst) 20 meq PO DAILY #30 tab 07/06/18 [Last Taken Unknown] lisinopril 10 mg tablet 10 mg PO DAILY #30 tab 07/28/18 [Last Taken Unknown] atorvastatin 40 mg tablet 40 mg PO HS #30 tab 08/02/18 [Last Taken Unknown] ipratropium-albuterol 0.5 mg-3 mg(2.5 mg base)/3 mL nebulization soln 3 ml INHALATION PRN PRN #180 ml 08/05/18 [Last Taken 08/15/18 20:00] hydrocodone 7.5 mg-acetaminophen 325 mg tablet 1 tab PO Q8H PRN #120 tab 08/11/18 [Last Taken Unknown] - History of Present Illness Narrative: patient with known hx of chf and sob presents to ed with 1-2 days of progressing dyspnea Severity: moderate Treatment KNIFER UP: by patient, albuterol Initiating event: Reports: upper resp illness Frequency of episodes: Reports: frequent episodes Modifying Factors - (Improves): Reports: albuterol Modifying Factors (Worsens): Reports: activity, coughing Associated Symptoms-Dyspnea: Reports: fever/chills, sweating, chest pain/discomfort, palpitations Review of Systems - Review of Systems Constitutional: Present: See HPI EYE: Present: no symptoms reported ENT: Present: no symptoms reported Respiratory: Present: See HPI, shortness of breath, cough, orthopnea, wheezing Cardiology: Present: no symptoms reported Gastrointestinal/Abdominal: Present: no symptoms reported Genitourinary: Present: no symptoms reported Musculoskeletal: Present: no symptoms reported Skin: Present: no symptoms reported Neurological: Present: no symptoms reported Endocrine: Present: no symptoms reported Hematologic/Lymphatic: Present: no symptoms reported Psych: Present: no symptoms reported All Other Systems: All systems neg except as marked Medical History (Last Reviewed 08/15/18 @ 21:37 by Kristin Fenton RN) Asthma (Chronic) Onset Date: Unknown SLE (systemic lupus erythematosus related syndrome) (Chronic) Onset Date: ~1987 Osteoporosis (Chronic) Onset Date: ~2004 Hypertension (Chronic) Onset Date: ~1984 Hyperlipidemia (Chronic) Onset Date: ~2001 GERD (gastroesophageal reflux disease) (Chronic) Onset Date: ~1991 Diabetes mellitus (Chronic) Onset Date: ~1980 CVA (cerebral vascular accident) (Acute) Onset Date: Unknown COPD (chronic obstructive pulmonary disease) (Chronic) Onset Date: ~2000 Chronic kidney disease (Chronic) Onset Date: ~09/23/06 stage 3. GFR 48 07/16 CAD (coronary artery disease) (Chronic) Onset Date: ~12/11/15 NSTEMI 12/2015 Prox, LAD, Ramus intermedius Anxiety with depression (Chronic) Onset Date: ~01/09/15 Anemia in chronic illness (Chronic) Onset Date: ~2000 Adrenal insufficiency (Chronic) Onset Date: ~1996 Surgical History: Surgical History (Last Reviewed 08/15/18 @ 21:37 by Kristin Fenton RN) History of hysterectomy (Resolved) Hx of appendectomy Hx of heart artery stent Family History: Family History (Last Reviewed 08/15/18 @ 21:37 by Kristin Fenton RN) Father Alcohol abuse Myocardial infarction Mother Alcohol abuse Aneurysm Brother Throat cancer Other Parents Social History: Preferred Language Greek Do you have any bahai or No cultural preference? Smoking Status Never smoker Have you smoked in the past 12 No months Do you dip or chew tobacco No Abuse History No History of abuse Psych History Hx of Anxiety,Hx of Depression Alcohol Use none Drug Use none (Last Updated 07/06/18 @ 11:26 by Kathleen Barrow MD) No Social History Section defined Physical Exam - Physical Exam General Appearance: Present: moderate distress, anxious Head Exam: Present: normal inspection, no evidence of injury Eye Exam: Normal inspection: bilateral, PERRL: bilateral, EOMI: bilateral, Photophobia: bilateral Ears, Nose, Throat: Present: normal ENT inspection, normal pharynx Neck: Present: normal inspection, nontender Respiratory: Present: respiratory distress, accessory muscle use, decreased breath sounds, rales, rhonchi, wheezing Cardiovascular/Chest: Present: regular rate, rhythm, no murmur, normal peripheral pulses Gastrointestinal/Abdominal: Present: normal bowel sounds, nontender, nondistended, soft, no organomegaly Back Exam: Present: normal inspection, normal range of motion, no CVA tenderness, no vertebral tenderness Extremity Exam: Present: normal inspection, non-tender, normal range of motion, no edema Neurological Exam: Present: alert, oriented, normal mood/affect, no motor/sensory deficits Skin Exam: Present: normal color, warm/dry Lymphatic Exam: Present: no adenopathy Progress - Date and Time Seen: Date and Time: 08/15/18 22:49 patient improved somewhat, to be admitted - Results and Orders Patient's Lab Results:: I have reviewed the patient's lab results. - Vital Signs Patient's Vital Signs:: I have reviewed the patient's vital signs. Vital Signs: Vital Signs 08/15/18 21:39 Temperature 36.9 C Pulse Rate 106 H Respiratory Rate 24 H Blood Pressure 167/98 H O2 Sat by Pulse Oximetry 90 L - EKG EKG #1 EKG: atrial fibrillation EKG read: Interp. by me - X-Ray X-Ray #1 X-Ray: chest - chf with bilaterall pleural effusion Interpretation: Interp. by me - Progress/Reassessment Chief Complaint: Dyspnea Progress:: Improved - Transfer of Care Expected Disposition: Admit Plan - Plan Plan: to be admitted Departure Clinical Impression: CHF (congestive heart failure), COPD exacerbation - Departure Disposition: Still a patient Condition: Serious Referrals: Kathleen Barrow MD [Primary Care Provider] -
[2018-08-15 22:14] LABS: Hematocrit 27.3 % (37.0-47.0); Hemoglobin 9.2 gm/dL (12.5-16.0); Mean Corpuscular Hemoglobin 33.7 pg (27-31); Mean Corpuscular Hgb Conc 33.7 g/dl (32-36); Mean Platelet Volume 12.1 fl (8-12.5); Neutrophil # 4.5 K/mm3 (1.3-6.0); Neutrophil % 73.4 % (42-75.0); Platelet Count 163 K/mm3 (150-450); Red Blood Count 2.73 M/mm3 (4.2-5.4); White Blood Count 6.2 K/mm3 (4.0-10.5)
[2018-08-15 22:37] LABS: Albumin * 3.1 gm/dl (3.4-5.0); Anion Gap 11.8 mmol/L (6.8-13.8); BUN/Creatinine Ratio 9.9 (9.0-21.6); Bilirubin, Total 0.9 mg/dL (0.0-1.1); Ca. Corrected For Albumin 9.2 mg/dL (8.4-10.2); Calcium * 8.8 mg/dL (7.9-10.9); Carbon Dioxide 29.9 mmol/L (24-32.6); Potassium 3.7 mmol/L (3.4-4.6); Total Protein 6.6 gm/dL (6.2-8.2); Troponin I 0.037 ng/mL (0.00-0.10)
[2018-08-16] MEDS ORDERED: ALBUTEROL SULFATE/IPRATROPIUM 3 ML NEBU IH PRN (00:25)
[2018-08-16] MEDS ORDERED: LISINOPRIL 40 MG TABLET PO STA (00:26)
[2018-08-16] MEDS ORDERED: LISINOPRIL 10 MG TABLET ONE ×2 (00:45→00:57)
[2018-08-16] MEDS: oxyCODONE HCL/ACETAMINOPHEN 1 TAB TABLET PO PRN ×3 (01:00→22:23)
[2018-08-16] MEDS ORDERED: LEVOFLOXACIN IN DEXTROSE 5 % 750 MG/150 ML BAG IV SCH (08:45)
[2018-08-16 09:00] LABS: Hematocrit 26.9 % (37.0-47.0); Hemoglobin 8.7 gm/dL (12.5-16.0); Mean Cell Volume 101.9 fl (78-100); Mean Corpuscular Hgb Conc 32.3 g/dl (32-36); Mean Platelet Volume 9.6 fl (8-12.5); Neutrophil # 3.1 K/mm3 (1.3-6.0); Neutrophil % 67.4 % (42-75.0); Platelet Count 166 K/mm3 (150-450); Red Blood Count 2.64 M/mm3 (4.2-5.4); Red Cell Distribution Width 12.8 % (11.5-14.0); White Blood Count 4.6 K/mm3 (4.0-10.5)
--- NOTE | 2018-08-16 09:13 | HP ---
Chief Complaint - Chief Complaint Date of Service: 08/16/18 Time of Service: 09:09 Chief Complaint: SOB History of Present Illness: This is a 78-year-old female with a past medical history of COPD on 3-1/2 L of home oxygen, CHF, diabetes mellitus type 2, hypertension, who presents from home with complaints of progressively worsening shortness of breath for the past 2 weeks. S symptoms associated with shortness of breath when lying flat, inc reased sputum production, sputum is yellow in color, and worsening swelling of her legs. She is unsure if her weight has changed. She states her symptoms began about 2 weeks ago she had been trying to come into the office for an acute visit but was unable to because there was no room in her PCP schedule. She had been trying to use the breathing treatments at home with no relief. She states she has been compliant with all of her home medications. She presented to the emergency room her symptoms of to bed to manage at home. In the emergency department she was found to be tachypneic, tachycardic, and hypertensive. Medical History (Last Updated 08/15/18 @ 23:50 by Shanna Morin RN) Asthma (Chronic) Onset Date: Unknown SLE (systemic lupus erythematosus related syndrome) (Chronic) Onset Date: ~1987 Osteoporosis (Chronic) Onset Date: ~2004 Hypertension (Chronic) Onset Date: ~1984 Hyperlipidemia (Chronic) Onset Date: ~2001 GERD (gastroesophageal reflux disease) (Chronic) Onset Date: ~1991 Diabetes mellitus (Chronic) Onset Date: ~1980 CVA (cerebral vascular accident) (Acute) Onset Date: Unknown COPD (chronic obstructive pulmonary disease) (Chronic) Onset Date: ~2000 Chronic kidney disease (Chronic) Onset Date: ~09/23/06 stage 3. GFR 48 07/16 CAD (coronary artery disease) (Chronic) Onset Date: ~12/11/15 NSTEMI 12/2015 Prox, LAD, Ramus intermedius Anxiety with depression (Chronic) Onset Date: ~01/09/15 Anemia in chronic illness (Chronic) Onset Date: ~2000 Adrenal insufficiency (Chronic) Onset Date: ~1996 CHF (congestive heart failure) Surgical History: Surgical History (Last Reviewed 08/15/18 @ 23:50 by Shanna Morin RN) History of hysterectomy (Resolved) Hx of appendectomy Hx of heart artery stent Family History: Family History (Last Reviewed 08/15/18 @ 23:50 by Shanna Morin RN) Father Alcohol abuse Myocardial infarction Mother Alcohol abuse Aneurysm Brother Throat cancer Other Parents Social History: Patient Lives/Resources With Spouse Utilized Occupation retired Preferred Language Nauruan Do you have any protestant or No cultural preference? Smoking Status Former smoker Have you smoked in the past 12 No months Do you dip or chew tobacco No Abuse History No History of abuse Psych History Hx of Anxiety,Hx of Depression Alcohol Use none Drug Use none (Last Updated 07/06/18 @ 11:26 by Kathleen Barrow MD) No Social History Section defined Review Of Systems (GEN) - Review of Systems Generalized/Overall Review: Absent: Chills, Fever Respiratory: Present: Cough, Shortness of Breath, Orthopnea Cardiac: Present: Chest Pain - She reports swelling, redness and pain of her ri ght breast, Edema Skin: Present: Change in Color - redness of right breast Misc: All systems neg except as marked Immunizations: IMMUNIZATION HX Immunizations Up to Date Yes History of Influenza Vaccine Yes Hx Pneumococcal Vaccination Yes Allergies/Adverse Reactions: Allergies Allergy/AdvReac Type Severity Reaction Status Date / Time doxycycline Allergy Verified 08/15/18 21:37 sulfamethoxazole Allergy Verified 08/15/18 21:37 [Sulfamethoxazole] tetracycline Allergy Verified 08/15/18 21:37 Home Medications: HOME MEDICATIONS Polyethylene Glycol 3350 [Miralax] 17 gm PO DAILY PRN 03/07/16 [Last Taken Unknown] Nystatin [Mycostatin Powder] 1 appl TOPICAL BID #1 btl 05/13/18 [Last Taken Unknown] aspirin 81 mg chewable tablet 81 mg PO DAILY 05/19/18 [Last Taken Unknown] calcium carbonate 600 mg calcium (1,500 mg) tablet 600 mg PO DAILY tab 05/19/18 [Last Taken Unknown] escitalopram 20 mg tablet 20 mg PO DAILY #30 tab 05/19/18 [Last Taken Unknown] Lamotrigine [Lamictal] 100 mg PO DAILY 06/18/18 [Last Taken Unknown] oxyCODONE HCL/ACETAMINOPHEN [Percocet 5-325 mg Tablet] 1 tab PO Q8H PRN 06/18/18 [Last Taken Unknown] metformin 500 mg tablet 250 mg PO BIDAC #60 tab 07/02/18 [Last Taken Unknown] predniSONE [Prednisone] 2 tab PO BID #10 tab 07/04/18 [Last Taken Unknown] Oxygen concentrator with supplies and portable tanks 0 .ROUTE .MEDSUPPLY #99 ea 07/05/18 [Last Taken Unknown] furosemide 20 mg tablet 20 mg PO DAILY #30 tab 07/06/18 [Last Taken Unknown] gabapentin 600 mg tablet 600 mg PO HS #30 tab 07/06/18 [Last Taken Unknown] potassium chloride ER 20 mEq tablet,extended release(part/cryst) 20 meq PO DAILY #30 tab 07/06/18 [Last Taken Unknown] lisinopril 10 mg tablet 10 mg PO DAILY #30 tab 07/28/18 [Last Taken Unknown] atorvastatin 40 mg tablet 40 mg PO HS #30 tab 08/02/18 [Last Taken Unknown] hydrocodone 7.5 mg-acetaminophen 325 mg tablet 1 tab PO Q8H PRN #120 tab 08/11/18 [Last Taken Unknown] Ipratropium/Albuterol Sulfate [Iprat-Albut 0.5-3(2.5) mg/3 ml] 3 ml INHALATION QID PRN 08/16/18 [Last Taken 08/15/18 20:00] Exam - Exam Vital Signs: Vital Signs - Last Taken Temp 36.1 C 08/16/18 06:00 Pulse 86 08/16/18 06:00 Resp 12 08/16/18 06:00 BP 133/67 08/16/18 06:00 Pulse Ox 99 08/16/18 08:01 Constitutional: Present: Alert, Cooperative Neck: Present: non-tender, supple, trachea midline. Absent: lymphadenopathy (R), lymphadenopathy (L) Back Exam: Present: other - kyphosis Breasts: Present: Breast complaints - right breast: Erythematous, edematous, tender to palpation. Circumferential area of erythema on the inferior aspect of the breast, with some maceration, and clear discharge. Respiratory: Present: no respiratory distress, no accessory muscle use, decreased breath sounds Cardiovascular/Chest: Present: normal peripheral pulses, regular rate, rhythm, systolic murmur, other - Right breast is swollen, erythmatous, tender to palpation, inferior aspect of the breast is draining clear fluid and has a circumferential area of erythema that is tender to palpation. Peripheral Pulses: dorsalis-pedis (R): 2+, dorsalis-pedis (L): 2+ Abdomen: Present: Normal bowel sounds, soft, nontender Extremity: Present: pedal edema - 2+ in b/l legs Lymphatic: Present: no adenopathy - in left axilla Eye contact: Present: cooperative Diagnostic Studies: Abnormal Lab Results 08/15/18 08/15/18 08/15/18 Range/Units 21:50 21:50 21:55 RBC 2.73 L (4.2-5.4) M/mm3 Hgb 9.2 L (12.5-16.0) gm/dL Hct 27.3 L (37.0-47.0) % MCV (78-100) fl MCH 33.7 H (27-31) pg Lymphocytes % 14.6 L (20-51) % Monocytes % 10.7 H (0.0-9) % Lymphocytes # 0.90 L (1.5-3.5) k/mm3 Total CO2 28.7 H (19.0-24.0) mmol/L Sodium 126 L (132-142) mmol/L Plasma Sodium 127 L (130-142) mmol/L Chloride 88 L (97-106) mmol/L Random Glucose 147 H (70-110) mg/dL ALT 13 L (19-67) U/L B-Natriuretic Peptide 56186 H (5-550) pg/mL Albumin 3.1 L (3.4-5.0) gm/dl 08/16/18 Range/Units 08:45 RBC 2.64 L (4.2-5.4) M/mm3 Hgb 8.7 L (12.5-16.0) gm/dL Hct 26.9 L (37.0-47.0) % MCV 101.9 H (78-100) fl MCH 33.0 H (27-31) pg Lymphocytes % 19.0 L (20-51) % Monocytes % 11.4 H (0.0-9) % Lymphocytes # 0.87 L (1.5-3.5) k/mm3 Total CO2 (19.0-24.0) mmol/L Sodium (132-142) mmol/L Plasma Sodium (130-142) mmol/L Chloride (97-106) mmol/L Random Glucose (70-110) mg/dL ALT (19-67) U/L B-Natriuretic Peptide (5-550) pg/mL Albumin (3.4-5.0) gm/dl Laboratory Results WBC 4.6 K/mm3 (4.0-10.5) D 08/16/18 08:45 RBC 2.64 M/mm3 (4.2-5.4) L 08/16/18 08:45 Hgb 8.7 gm/dL (12.5-16.0) L 08/16/18 08:45 Hct 26.9 % (37.0-47.0) L 08/16/18 08:45 MCV 101.9 fl (78-100) H 08/16/18 08:45 MCH 33.0 pg (27-31) H 08/16/18 08:45 MCHC 32.3 g/dl (32-36) 08/16/18 08:45 RDW 12.8 % (11.5-14.0) 08/16/18 08:45 Plt Count 166 K/mm3 (150-450) 08/16/18 08:45 MPV 9.6 fl (8-12.5) 08/16/18 08:45 Immature Gran % (Auto) 0.20 % (0.001-0.429) 08/16/18 08:45 Immature Gran # (Auto) 0.01 K/mm3 (0.000-0.0310) 08/16/18 08:45 Neutrophils % 67.4 % (42-75.0) 08/16/18 08:45 Lymphocytes % 19.0 % (20-51) L 08/16/18 08:45 Monocytes % 11.4 % (0.0-9) H 08/16/18 08:45 Eosinophils % 1.1 % (0.0-3.0) 08/16/18 08:45 Basophils % 0.9 % (0.0-1.0) 08/16/18 08:45 Nucleated RBC % 0.0 k/mm3 (0-1) 08/16/18 08:45 Neutrophils # 3.1 K/mm3 (1.3-6.0) 08/16/18 08:45 Lymphocytes # 0.87 k/mm3 (1.5-3.5) L 08/16/18 08:45 Monocytes # 0.5 k/mm3 (0.0-1.0) 08/16/18 08:45 Eosinophils # 0.1 k/mm3 (0.0-0.7) 08/16/18 08:45 Absolute Basophils 0.0 k/mm3 (0.0-0.1) 08/16/18 08:45 pCO2 44.3 mmHg (32.0-45.0) 08/15/18 21:55 pO2 85.4 mmHg (83.0-108.0) 08/15/18 21:55 HCO3 27.3 mmol/L (21.0-28.0) 08/15/18 21:55 Total CO2 28.7 mmol/L (19.0-24.0) H 08/15/18 21:55 Base Excess 2.3 mmol/L (-2.0-3.0) 08/15/18 21:55 ABG pH 7.41 (7.35-7.45) 08/15/18 21:55 ABG O2 Sat (Measured) 96.5 % (94.0-98.0) 08/15/18 21:55 Sodium 126 mmol/L (132-142) L 08/15/18 21:50 Plasma Sodium 127 mmol/L (130-142) L 08/15/18 21:50 Potassium 3.7 mmol/L (3.4-4.6) 08/15/18 21:50 Chloride 88 mmol/L (97-106) L 08/15/18 21:50 Carbon Dioxide 29.9 mmol/L (24-32.6) 08/15/18 21:50 Anion Gap 11.8 mmol/L (6.8-13.8) 08/15/18 21:50 BUN 8 mg/dL (3-23) 08/15/18 21:50 Creatinine 0.81 mg/dL (0.4-1.4) 08/15/18 21:50 Est GFR (Non-Af Amer) 73 mL/min (60-130) D 08/15/18 21:50 BUN/Creatinine Ratio 9.9 (9.0-21.6) 08/15/18 21:50 Random Glucose 147 mg/dL (70-110) H 08/15/18 21:50 Calcium 8.8 mg/dL (7.9-10.9) 08/15/18 21:50 Calcium Adj for Albumin 9.2 mg/dL (8.4-10.2) 08/15/18 21:50 Total Bilirubin 0.9 mg/dL (0.0-1.1) 08/15/18 21:50 AST 31 U/L (0-48) 08/15/18 21:50 ALT 13 U/L (19-67) L 08/15/18 21:50 Alkaline Phosphatase 68 U/L (50-170) 08/15/18 21:50 Troponin I 0.037 ng/mL (0.00-0.10) 08/15/18 21:50 B-Natriuretic Peptide 98077 pg/mL (5-550) H 08/15/18 21:50 Total Protein 6.6 gm/dL (6.2-8.2) 08/15/18 21:50 Albumin 3.1 gm/dl (3.4-5.0) L 08/15/18 21:50 Assessment/Plan - Narrative Narrative: This is a 78-year-old female with a past medical history of oxygen dependent COPD, she is on 3.5 L of home oxygen, congestive heart failure, hypertension, diabetes mellitus type 2, who presents with acute CHF exacerbation and acute COPD exacerbation. - Assessment/Plan (1) Acute exacerbation of CHF (congestive heart failure) Assessment: She has fluid overload as noted on chest x-ray. Continue with IV Lasix 40 mg twice a day, fluid restriction of 2 L, daily weights, I's and O's, and salt restriction. Problem: Acute (2) Acute exacerbation of chronic obstructive pulmonary disease (COPD) Assessment: Likely COPD exacerbation due to increased purulent sputum, and increased dyspnea. Continue with duo nebs, oral steroids, and oxygen to keep oxygen level greater between 88 and 92 percent. Continue with Levaquin due to her history of multiple hospital admissions. Problem: Acute (3) Mastitis of right breast unrelated to of Assessment: Breast swelling started a few weeks ago and is progressively worsening. She states she has had the symptoms in the past, but it self resolved. She has never experienced swelling of her breast to this extent. Fungal versus bacterial etiology. Start nystatin and continue with Levaquin for now. Continue to monitor vitals and CBC. Problem: Acute (4) Depression Assessment: Stable to continue current medications. Problem: Chronic (5) Hypertension Assessment: Stable continue current medications. Problem: Chronic (6) Hyperlipidemia Assessment: Stable continue current medications. Problem: Chronic
[2018-08-16] MEDS: LEVOFLOXACIN IN DEXTROSE 5 % 750 MG/150 ML BAG IV SCH (09:33)
[2018-08-16] MEDS: FUROSEMIDE 10 MG/ML VIAL IV SCH ×2 (09:33→22:24)
[2018-08-16] MEDS: NYSTATIN 15 APPL BTL TP SCH ×2 (09:33→22:27)
[2018-08-16] MEDS: HEPARIN SODIUM,PORCINE 5,000 UNITS/ML VIAL SC SCH ×2 (09:34→23:08)
[2018-08-16] MEDS: predniSONE 20 MG TABLET PO SCH (09:34)
[2018-08-16 09:35] LABS: Albumin * 2.9 gm/dl (3.4-5.0); Anion Gap 9.6 mmol/L (6.8-13.8); BUN/Creatinine Ratio 7.3 (9.0-21.6); Bilirubin, Total 0.8 mg/dL (0.0-1.1); Ca. Corrected For Albumin 9.5 mg/dL (8.4-10.2); Calcium * 8.9 mg/dL (7.9-10.9); Carbon Dioxide 34.9 mmol/L (24-32.6); Potassium 3.5 mmol/L (3.4-4.6); Total Protein 5.7 gm/dL (6.2-8.2)
[2018-08-17 05:31] LABS: Hematocrit 28.7 % (37.0-47.0); Hemoglobin 9.3 gm/dL (12.5-16.0); Mean Cell Volume 101.8 fl (78-100); Mean Corpuscular Hgb Conc 32.4 g/dl (32-36); Mean Platelet Volume 10.1 fl (8-12.5); Platelet Count 181 K/mm3 (150-450); Red Blood Count 2.82 M/mm3 (4.2-5.4); Red Cell Distribution Width 12.5 % (11.5-14.0); White Blood Count 3.3 K/mm3 (4.0-10.5)
[2018-08-17 07:20] LABS: Albumin * 2.7 gm/dl (3.4-5.0); Anion Gap 12.4 mmol/L (6.8-13.8); BUN/Creatinine Ratio 10.1 (9.0-21.6); Bilirubin, Total 0.7 mg/dL (0.0-1.1); Ca. Corrected For Albumin 9.4 mg/dL (8.4-10.2); Calcium * 8.7 mg/dL (7.9-10.9); Potassium 3.4 mmol/L (3.4-4.6)
[2018-08-17] MEDS: oxyCODONE HCL/ACETAMINOPHEN 1 TAB TABLET PO PRN ×2 (09:27→19:06)
[2018-08-17] MEDS: ESCITALOPRAM OXALATE 10 MG TAB PO SCH (09:28)
[2018-08-17] MEDS: predniSONE 20 MG TABLET PO SCH (09:29)
[2018-08-17] MEDS: LISINOPRIL 10 MG TABLET PO SCH (09:29)
[2018-08-17] MEDS: POTASSIUM BICARBONATE/CIT AC 25 MEQ TABLET.EFF PO SCH (09:29)
[2018-08-17] MEDS: FUROSEMIDE 10 MG/ML VIAL IV SCH ×2 (09:35→20:46)
[2018-08-17] MEDS: HEPARIN SODIUM,PORCINE 5,000 UNITS/ML VIAL SC SCH ×2 (09:47→20:45)
[2018-08-17] MEDS: LEVOFLOXACIN IN DEXTROSE 5 % 750 MG/150 ML BAG IV SCH (09:47)
[2018-08-17] MEDS: NYSTATIN 15 APPL BTL TP SCH ×2 (09:49→20:45)
--- NOTE | 2018-08-17 10:40 | PN ---
Subjective - Date and Time Seen Date: 08/17/18 Time: 10:07 Subjective Narrative: She states she does not feel great. She complains of shortness of breath, left- sided chest pain, and swelling in her legs. She states her right breast is less painful than it was yesterday. Objective - Review of Systems Respiratory: Reports: Shortness of Breath Cardiac: Reports: Chest Pain Abdominal: Denies: Nausea, Vomiting, Abdominal Pain Genitourinary Symptoms: Reports: Frequency - Vitals Vitals: Last Vital Signs Temp 37.4 C 08/17/18 06:30 Pulse 91 08/17/18 09:35 Resp 18 08/17/18 06:30 BP 131/60 08/17/18 09:35 Pulse Ox 98 08/17/18 06:30 - Abnormal Lab Findings Abnormal Lab Findings: Abnormal Lab Results 08/17/18 08/17/18 Range/Units 05:20 05:20 WBC 3.3 L D (4.0-10.5) K/mm3 RBC 2.82 L (4.2-5.4) M/mm3 Hgb 9.3 L (12.5-16.0) gm/dL Hct 28.7 L (37.0-47.0) % MCV 101.8 H (78-100) fl MCH 33.0 H (27-31) pg Monocytes % 16.5 H (0.0-9) % Lymphocytes # 0.72 L (1.5-3.5) k/mm3 Chloride 92 L (97-106) mmol/L Carbon Dioxide 33.0 H (24-32.6) mmol/L Random Glucose 115 H (70-110) mg/dL ALT 12 L (19-67) U/L Total Protein 6.0 L (6.2-8.2) gm/dL Albumin 2.7 L (3.4-5.0) gm/dl - Exam Constitutional: Present: Alert, Cooperative, No distress, Elderly Neck: Present: non-tender, supple, trachea midline. Absent: lymphadenopathy (R), lymphadenopathy (L) Breasts: Present: Other - Right breast: Decreased erythema, decreased tenderness to palpation, remains edematous.. Absent: Discharge Respiratory: Present: crackles - Mild crackles noted in bilateral bases. Cardiovascular/Chest: Present: normal peripheral pulses, regular rate, rhythm, systolic murmur, chest tender - Left upper outer quadrant of the chest tender to palpation, edema Abdomen: Present: Normal bowel sounds, soft, nontender Extremity: Present: pedal edema - 2+ bilaterally Skin Exam: Present: other - Right breast is mildly erythematous. Improved Lymphatic: Present: other - No right axilla adenopathy Eye contact: Present: cooperative Assessment/Plan Plan Narrative: This is a 78-year-old female presenting with COPD exacerbation and CHF exacerbation. Found to have a right mastitis. - Problems/Diagnosis (1) Acute exacerbation of CHF (congestive heart failure) Problem: Acute Qualifiers: Heart failure type: diastolic Qualified Code(s): I50.33 - Acute on chronic diastolic (congestive) heart failure Narrative: Slowly improving. Echocardiogram in June 2018 showed an ejection fraction of 58%. She is diuresed adequately and has a 2.5 L negative fluid balance over the past 24 hours. Continue with diuresis for 1 more day, and monitor BMP, daily weights, limit fluid intake to 2 L. I believe the etiology of her heart failure exacerbation secondary to noncompliance with her medication and fluid restriction. (2) Acute exacerbation of chronic obstructive pulmonary disease (COPD) Problem: Acute Narrative: Slowly improving, continue with nebulizers, Levaquin, and prednisone. (3) Mastitis of right breast unrelated to of Problem: Acute Narrative: Improving continue with nystatin. She is already on antibiotic therapy for the COPD exacerbation. (4) Depression Problem: Chronic Narrative: Stable, no change to medication regimen. (5) Hypertension Problem: Chronic Narrative: Stable no change to medication regimen. (6) Hyperlipidemia Problem: Chronic Narrative: Continue home medications. (7) Hyponatremia Problem: Acute Narrative: Likely secondary to volume overload. Resolved with fluid restriction and diuresis.
[2018-08-17] MEDS: lamoTRIgine 100 MG TABLET PO SCH (14:28)
[2018-08-18] MEDS: oxyCODONE HCL/ACETAMINOPHEN 1 TAB TABLET PO PRN (04:06)
[2018-08-18 05:20] LABS: Hematocrit 28.1 % (37.0-47.0); Hemoglobin 9.3 gm/dL (12.5-16.0); Mean Cell Volume 101.1 fl (78-100); Mean Corpuscular Hemoglobin 33.5 pg (27-31); Mean Corpuscular Hgb Conc 33.1 g/dl (32-36); Mean Platelet Volume 9.7 fl (8-12.5); Neutrophil # 2.9 K/mm3 (1.3-6.0); Neutrophil % 66.5 % (42-75.0); Platelet Count 203 K/mm3 (150-450); Red Blood Count 2.78 M/mm3 (4.2-5.4); Red Cell Distribution Width 12.6 % (11.5-14.0); White Blood Count 4.4 K/mm3 (4.0-10.5)
[2018-08-18 05:33] LABS: Albumin * 2.8 gm/dl (3.4-5.0); Anion Gap 7.2 mmol/L (6.8-13.8); BUN/Creatinine Ratio 9.8 (9.0-21.6); Bilirubin, Total 0.6 mg/dL (0.0-1.1); Ca. Corrected For Albumin 9.1 mg/dL (8.4-10.2); Calcium * 8.5 mg/dL (7.9-10.9); Potassium 3.2 mmol/L (3.4-4.6); Total Protein 6.1 gm/dL (6.2-8.2)
[2018-08-18] MEDS: NYSTATIN 15 APPL BTL TP SCH (08:36)
[2018-08-18] MEDS: LISINOPRIL 10 MG TABLET PO SCH (08:37)
[2018-08-18] MEDS: predniSONE 20 MG TABLET PO SCH (08:37)
[2018-08-18] MEDS: FUROSEMIDE 10 MG/ML VIAL IV SCH (08:37)
[2018-08-18] MEDS: POTASSIUM BICARBONATE/CIT AC 25 MEQ TABLET.EFF PO SCH (08:38)
[2018-08-18] MEDS: lamoTRIgine 100 MG TABLET PO SCH (08:38)
[2018-08-18] MEDS: HEPARIN SODIUM,PORCINE 5,000 UNITS/ML VIAL SC SCH (08:38)
[2018-08-18] MEDS: ESCITALOPRAM OXALATE 10 MG TAB PO SCH (08:38)
[2018-08-18] MEDS: LEVOFLOXACIN IN DEXTROSE 5 % 750 MG/150 ML BAG IV SCH (08:43)
--- NOTE | 2018-08-18 09:15 | DS ---
(1) Acute exacerbation of CHF (congestive heart failure) Diagnosis(s): Improved with diuresis. She can resume her home dose of Lasix at 20 mg daily. She should check her weight daily at home and notify her PCP if her weight increases by and 2 pounds. Continue with low-sodium diet of 2 g a day. Continue with fluid restriction at 2 L a day. Problem: Resolved Qualifiers: Heart failure type: diastolic Qualified Code(s): I50.33 - Acute on chronic diastolic (congestive) heart failure (2) Acute exacerbation of chronic obstructive pulmonary disease (COPD) Diagnosis(s): Improving, we will continue with Levaquin as an outpatient for 5 more days, total of 7 days. Continue with oxygen therapy at home with a goal oxygen saturation of 88-92%. Continue 3 more days of 40 mg of prednisone daily, then resume home dose of prednisone at 20 mg daily. Problem: Resolved (3) Mastitis of right breast unrelated to of Diagnosis(s): Resolved continue with nystatin as outpatient. Problem: Resolved (4) Depression Diagnosis(s): Stable continue current medication regimen. Problem: Chronic (5) Hypertension Diagnosis(s): Stable continue current medication regimen. Problem: Chronic Qualifiers: Hypertension type: essential hypertension Qualified Code(s): I10 - Essential (primary) hypertension (6) Hyperlipidemia Diagnosis(s): Stable continue current medication regimen. Problem: Chronic (7) Hyponatremia Diagnosis(s): Likely secondary to volume overload. Resolved with diuresis. Problem: Resolved (8) Hypokalemia Diagnosis(s): Likely secondary to Lasix therapy. Continue to supplement as needed. Problem: Acute Description of Stay: 78-year-old female with a past medical history of oxygen dependent COPD, congestive heart failure, hypertension, hyperlipidemia presents from home with complaints of progressively worsening shortness of breath for the past 2 weeks. Associated with increased sputum production, and purulent sputum. Chest x-ray showed vascular congestion, and questionable infiltrate. She was found to be hyponatremic and was admitted to the hospital for COPD exacerbation and CHF exacerbation. Patient was started on steroids, oxygen supplementation, diurese with Lasix, and Levaquin (because of multiple previous hospital admissions). Patient had an adequate response with good diuresis, decreased dyspnea, and improved oxygenation. She was seen by physical therapy and occupational therapy who determined that she would benefit from continued therapy at home. Lenore Copeland is confined to the home due to decreased mobility, poor balance, risk for falls and gait issues. Need for fpc is for medication management, education regarding diagnoses, monitoring of vitals and the need for physical therapy is for strengthening endurance, gait and balance issues, mobility issues, teaching to be safe. The need for occupational therapy is for mobility issues, teaching to be safe, strengthening and endurance issues. The need for home health care skilled services is directly related to the time spent [id number] with the person. Procedures Performed: none Results and Findings: Pending Mircobiology Results 08/15/18 22:00 Blood Blood Culture - Preliminary NO GROWTH AFTER 48 HOURS 08/15/18 21:50 Blood Blood Culture - Preliminary NO GROWTH AFTER 48 HOURS Lab Pending Results 08/15/18 21:50: WBC 6.2, RBC 2.73 L, Hgb 9.2 L, Hct 27.3 L, MCV 100.0, MCH 33.7 H, MCHC 33.7, RDW 13.0, Plt Count 163, MPV 12.1, Immature Gran % (Auto) 0.20, Immature Gran # (Auto) 0.01, Neutrophils % 73.4, Lymphocytes % 14.6 L, Monocytes % 10.7 H, Eosinophils % 0.5, Basophils % 0.6, Nucleated RBC % 0.0, Neutrophils # 4.5, Lymphocytes # 0.90 L, Monocytes # 0.7, Eosinophils # 0.0, Absolute Basophils 0.0 08/15/18 21:50: Sodium 126 L, Plasma Sodium 127 L, Potassium 3.7, Chloride 88 L, Carbon Dioxide 29.9, Anion Gap 11.8, BUN 8, Creatinine 0.81, Est GFR (Non-Af Am er) 73 D, BUN/Creatinine Ratio 9.9, Random Glucose 147 H, Calcium 8.8, Calcium Adj for Albumin 9.2, Total Bilirubin 0.9, AST 31, ALT 13 L, Alkaline Phosphatase 68, Troponin I 0.037, B-Natriuretic Peptide 38788 H, Total Protein 6.6, Albumin 3.1 L 08/15/18 21:55: pCO2 44.3, pO2 85.4, HCO3 27.3, Total CO2 28.7 H, Base Excess 2.3, ABG pH 7.41, ABG O2 Sat (Measured) 96.5 08/16/18 08:45: WBC 4.6 D, RBC 2.64 L, Hgb 8.7 L, Hct 26.9 L, MCV 101.9 H, MCH 33.0 H, MCHC 32.3, RDW 12.8, Plt Count 166, MPV 9.6, Immature Gran % (Auto) 0.20, Immature Gran # (Auto) 0.01, Neutrophils % 67.4, Lymphocytes % 19.0 L, Monocytes % 11.4 H, Eosinophils % 1.1, Basophils % 0.9, Nucleated RBC % 0.0, Neutrophils # 3.1, Lymphocytes # 0.87 L, Monocytes # 0.5, Eosinophils # 0.1, Absolute Basophils 0.0 08/16/18 08:45: Sodium 132, Plasma Sodium 132, Potassium 3.5, Chloride 91 L, Carbon Dioxide 34.9 H, Anion Gap 9.6, BUN 6, Creatinine 0.82, Est GFR (Non-Af Amer) 72, BUN/Creatinine Ratio 7.3 L, Random Glucose 113 H, Calcium 8.9, Calcium Adj for Albumin 9.5, Total Bilirubin 0.8, AST 21, ALT 12 L, Alkaline Phosphatase 68, Total Protein 5.7 L, Albumin 2.9 L 08/17/18 05:20: WBC 3.3 L D, RBC 2.82 L, Hgb 9.3 L, Hct 28.7 L, MCV 101.8 H, MCH 33.0 H, MCHC 32.4, RDW 12.5, Plt Count 181, MPV 10.1, Immature Gran % (Auto) 0.30, Immature Gran # (Auto) 0.01, Neutrophils % 61.0, Lymphocytes % 21.6, Monocytes % 16.5 H, Eosinophils % 0.0, Basophils % 0.6, Nucleated RBC % 0.0, Neutrophils # 2.0, Lymphocytes # 0.72 L, Monocytes # 0.6, Eosinophils # 0.0, Absolute Basophils 0.0 08/17/18 05:20: Sodium 134, Plasma Sodium 134, Potassium 3.4, Chloride 92 L, Carbon Dioxide 33.0 H, Anion Gap 12.4, BUN 9, Creatinine 0.89, Est GFR (Non-Af Amer) 66, BUN/Creatinine Ratio 10.1, Random Glucose 115 H, Calcium 8.7, Calcium Adj for Albumin 9.4, Total Bilirubin 0.7, AST 26, ALT 12 L, Alkaline Phosphatase 63, Total Protein 6.0 L, Albumin 2.7 L 08/18/18 05:10: WBC 4.4 D, RBC 2.78 L, Hgb 9.3 L, Hct 28.1 L, MCV 101.1 H, MCH 33.5 H, MCHC 33.1, RDW 12.6, Plt Count 203, MPV 9.7, Immature Gran % (Auto) 0.20, Immature Gran # (Auto) 0.01, Neutrophils % 66.5, Lymphocytes % 20.9, Monocytes % 12.2 H, Eosinophils % 0.0, Basophils % 0.2, Nucleated RBC % 0.0, Neutrophils # 2.9, Lymphocytes # 0.91 L, Monocytes # 0.5, Eosinophils # 0.0, Absolute Basophils 0.0 08/18/18 05:10: Sodium 134, Plasma Sodium 134, Potassium 3.2 L, Chloride 91 L, Carbon Dioxide 39.0 H, Anion Gap 7.2, BUN 9, Creatinine 0.92, Est GFR (Non-Af Amer) 63, BUN/Creatinine Ratio 9.8, Random Glucose 108, Calcium 8.5, Calcium Adj for Albumin 9.1, Total Bilirubin 0.6, AST 26, ALT 13 L, Alkaline Phosphatase 60, Total Protein 6.1 L, Albumin 2.8 L Discharge Location: Home Disposition: Home Health Service Home Health Agency: [facility] Health Condition: Fair Face to Face Encounter completed per CMS Guidelines: Yes Discharge Activity: Activity as tolerated Discharge Diet: Low salt Referrals: Kathleen Barrow MD [Primary Care Provider] - Additional Patient Instructions (free text): [facility] Home Health- nursing and bath aid, PT/OT at discharge- fax discharge information, instructions, and call report. -Please make TCM appointment unless [facility]ci discharge. Thank you! Fabiola @ [phone]. Prescriptions (Any new or edited meds): Levofloxacin [Levaquin] 750 mg PO DAILY 5 Days #5 tablet Complete Home Medications List: Complete Home Medication List: Polyethylene Glycol 3350 [Miralax] 17 gm PO DAILY PRN 03/07/16 Nystatin [Mycostatin Powder] 1 appl TOPICAL BID #1 btl 05/13/18 aspirin 81 mg chewable tablet 81 mg PO DAILY 05/19/18 calcium carbonate 600 mg calcium (1,500 mg) tablet 600 mg PO DAILY tab 05/19/18 escitalopram 20 mg tablet 20 mg PO DAILY #30 tab 05/19/18 Lamotrigine [Lamictal] 100 mg PO DAILY 06/18/18 oxyCODONE HCL/ACETAMINOPHEN [Percocet 5-325 mg Tablet] 1 tab PO Q8H PRN 06/18/18 metformin 500 mg tablet 250 mg PO BIDAC #60 tab 07/02/18 predniSONE [Prednisone] 2 tab PO BID #10 tab 07/04/18 Oxygen concentrator with supplies and portable tanks 0 .ROUTE .MEDSUPPLY #99 ea 07/05/18 furosemide 20 mg tablet 20 mg PO DAILY #30 tab 07/06/18 gabapentin 600 mg tablet 600 mg PO HS #30 tab 07/06/18 potassium chloride ER 20 mEq tablet,extended release(part/cryst) 20 meq PO DAILY #30 tab 07/06/18 lisinopril 10 mg tablet 10 mg PO DAILY #30 tab 07/28/18 atorvastatin 40 mg tablet 40 mg PO HS #30 tab 08/02/18 hydrocodone 7.5 mg-acetaminophen 325 mg tablet 1 tab PO Q8H PRN #120 tab 08/11/18 Ipratropium/Albuterol Sulfate [Iprat-Albut 0.5-3(2.5) mg/3 ml] 3 ml INHALATION QID PRN 08/16/18 Levofloxacin [Levaquin] 750 mg PO DAILY 5 Days #5 tablet 08/18/18 predniSONE [Prednisone] 40 mg PO DAILY tab 08/18/18
[2018-08-18 13:55] VITALS: BP 148/73
== END 2018-08-18 15:06 | disposition home health service (06) | DRG 291 ==
LOC: ER 21:36 → MS 22:48
PROVIDERS: ADMIT Internal Medicine; ATTEND Internal Medicine
DX: T50.1X5A Adverse effect of loop [high-ceiling] diuretics, initial encounter; E78.5 Hyperlipidemia, unspecified; E27.40 Unspecified adrenocortical insufficiency; I13.0 Hypertensive heart and chronic kidney disease with heart failure and stage 1 through stage 4 chronic kidney disease, or unspecified chronic kidney disease; Z95.5 Presence of coronary angioplasty implant and graft; E11.22 Type 2 diabetes mellitus with diabetic chronic kidney disease; Z91.81 History of falling; Z91.14 Patient's other noncompliance with medication regimen; I25.2 Old myocardial infarction; Z99.81 Dependence on supplemental oxygen; N61.0 Mastitis without abscess; I25.10 Atherosclerotic heart disease of native coronary artery without angina pectoris; Z88.6 Allergy status to analgesic agent; Z88.1 Allergy status to other antibiotic agents; Z88.5 Allergy status to narcotic agent; Z79.84 Long term (current) use of oral hypoglycemic drugs; D63.8 Anemia in other chronic diseases classified elsewhere; N18.3 Chronic kidney disease, stage 3 (moderate); Z79.82 Long term (current) use of aspirin; J44.1 Chronic obstructive pulmonary disease with (acute) exacerbation; F41.9 Anxiety disorder, unspecified; E87.1 Hypo-osmolality and hyponatremia; Z82.49 Family history of ischemic heart disease and other diseases of the circulatory system; M32.9 Systemic lupus erythematosus, unspecified; E87.6 Hypokalemia; Z79.52 Long term (current) use of systemic steroids; Z88.2 Allergy status to sulfonamides; I50.33 Acute on chronic diastolic (congestive) heart failure; Z87.891 Personal history of nicotine dependence
CPT/HCPCS: 36415; 36600; 71010; 71045; 80053; 82803; 83519; 83880; 84484; 85025; 87040; 93005; 94640; 94664; 94760; 96374; 97110; 97116; 97162; 97166; 97535; 99285